=== PATIENT | male | born 2000 | race African-American/Black ===

== ENCOUNTER 2019-11-04 08:00 | Outpatient (CLI) | payer MEDICAID ==
[2019-11-04 18:15] LABS: BASOPHILS % (AUTO) 0.5 %; EOSINOPHILS # (AUTO) 0.1 10^3/uL (0.0-0.7); EOSINOPHILS % (AUTO) 1.8 %; HGB - HEMOGLOBIN 14.3 g/dL (14.0-18.0); LYMPHOCYTES # (AUTO) 1.6 10^3/uL (1.5-3.5); LYMPHOCYTES % (AUTO) 25.7 %; MEAN CORPUSCULAR HEMOGLOBIN 29.7 pg (27.0-31.0); MEAN CORPUSCULAR HGB CONC 33.1 g/dL (32.0-36.0); MEAN CORPUSCULAR VOLUME 89.8 fL (80.0-94.0); MEAN PLATELET VOLUME 10.3 fL (7.4-11.4); MONOCYTES # (AUTO) 0.5 10^3/uL (0.0-1.0); MONOCYTES % (AUTO) 7.6 %; NEUTROPHILS % (AUTO) 64.2 %; PLT - PLATELET COUNT 350 10^3/uL (130-450); RED BLOOD COUNT 4.81 10^6/uL (4.70-6.10); RED CELL DISTRIBUTION WIDTH 12.3 % (12.0-15.0); WHITE BLOOD COUNT 6.2 x10^3/uL (4.8-10.8)
[2019-11-04 18:37] LABS: ALBUMIN 4.1 g/dL (3.2-5.5); ALBUMIN/GLOBULIN RATIO 1.4 (1.0-2.2); BILIRUBIN,TOTAL 0.4 mg/dL (0.2-1.0); CALCIUM 9.1 mg/dL (8.5-10.3); CREATININE 0.7 mg/dL (0.6-1.2); MAGNESIUM 2.2 mg/dL (1.7-2.8); TOTAL PROTEIN 7.1 g/dL (6.7-8.2)
== END 2019-11-04 23:59 | disposition home or self-care (01) ==
LOC: LAB.WCP 08:00
PROVIDERS: ATTEND Family Medicine
DX: K56.2 Volvulus (principal)
CPT/HCPCS: 36415; 80053; 83735; 85025

== ENCOUNTER 2021-04-05 11:24 | Outpatient (CLI) | payer OTHER, MEDICAID ==
[2021-04-05 18:02] LABS: BASOPHILS % (AUTO) 0.4 %; EOSINOPHILS # (AUTO) 0.1 10^3/uL (0.0-0.7); EOSINOPHILS % (AUTO) 1.5 %; HCT - HEMATOCRIT 47.6 % (42.0-52.0); HGB - HEMOGLOBIN 15.7 g/dL (14.0-18.0); LYMPHOCYTES # (AUTO) 1.9 10^3/uL (1.5-3.5); LYMPHOCYTES % (AUTO) 40.2 %; MEAN CORPUSCULAR HEMOGLOBIN 28.9 pg (27.0-31.0); MEAN CORPUSCULAR VOLUME 87.5 fL (80.0-94.0); MEAN PLATELET VOLUME 10.6 fL (7.4-11.4); MONOCYTES # (AUTO) 0.4 10^3/uL (0.0-1.0); MONOCYTES % (AUTO) 8.5 %; NEUTROPHILS # (AUTO) 2.4 10^3/uL (1.5-6.6); NEUTROPHILS % (AUTO) 49.2 %; PLT - PLATELET COUNT 250 10^3/uL (130-450); RED BLOOD COUNT 5.44 10^6/uL (4.70-6.10); WHITE BLOOD COUNT 4.8 x10^3/uL (4.8-10.8)
[2021-04-05 18:07] LABS: INR 1.1 (0.8-1.2)
[2021-04-05 18:14] LABS: PARTIAL THROMBOPLASTIN TIME 36.5 secs (24.9-33.3)
[2021-04-05 18:17] LABS: ALBUMIN 4.5 g/dL (3.2-5.5); ALBUMIN/GLOBULIN RATIO 1.4 (1.0-2.2); BILIRUBIN,TOTAL 0.6 mg/dL (0.2-1.0); CALCIUM 9.7 mg/dL (8.5-10.3); CREATININE 0.8 mg/dL (0.6-1.2); POTASSIUM 3.9 mmol/L (3.5-5.0); TOTAL PROTEIN 7.7 g/dL (6.7-8.2)
== END 2021-04-05 23:59 | disposition home or self-care (01) ==
LOC: LAB.WCP 11:24
PROVIDERS: ATTEND Family Medicine
DX: R63.6 Underweight (principal)
CPT/HCPCS: 36415; 80053; 84153; 85025; 85610; 85730

== ENCOUNTER 2025-05-12 12:42 | Inpatient (IN) ==
--- NOTE | 2025-05-12 12:59 | ED Physician Documentation ---
PD HPI NVD Stated complaint Stated Complaint: ABD PX/N Chief complaint Chief Complaint: Abd Pain Additonal information Additional information: 25-year-old male was recently here couple days ago for nausea vomiting abdominal pain. He is history of intussusception that self resolved without surgery he was given a prescription of Zofran and told to try to do some bowel rest going home he said that he has not smoked any cannabis in about a month comes back in today for no improvement of symptoms no worsening symptoms. Continues to have nausea vomiting no fevers or chills mild generalized abdominal discomfort Meds/Allgy Home Medications Ambulatory Orders Medication Instructions Recorded Confirmed ondansetron 4 mg disintegrating 4 mg PO Q8H PRN nausea and 05/10/25 05/12/25 tablet vomiting #15 tabs Allergies Allergies Allergy/AdvReac Type Severity Reaction Status Date / Time No Known Drug Allergies Allergy Verified 05/12/25 12:58 PFSH Active Problems All Active Problems (Updated 05/12/25 @ 14:24 by Kvng Chung DNP) Intractable cyclical vomiting with nausea (Acute) Hypokalemia (Acute) Nausea & vomiting (Acute) Volvulus of large intestine (Acute) Underweight (Acute) GERD with esophagitis (Acute) Esophageal candidiasis (Acute) Tinea capitis (Acute) Medical History Medical History (Updated 05/12/25 @ 14:24 by Kvng Chung DNP) History of intussusception of intestine Social History Social History (Updated 05/10/25 @ 13:09 by Lena Barrios, RN, BSN) Smoking Status: Unknown if ever smoked Living arrangement: At home Do you feel safe in your home environment?: Yes History of physical, verbal, emotional, or financial abuse?: No POLST Patient has POLST: No Exam Exam Vital Signs: Vital Signs x48h Temp Pulse Resp BP Pulse Ox 05/12/25 16:00 114 H 20 98 05/12/25 14:34 92 18 131/71 H 98 05/12/25 12:48 37 C 107 H 22 151/115 H 97 Constitutional normal general appearance, no apparent distress, average body habitus, no limitations and alert HENMT normocephalic and head/scalp atraumatic Eyes PERRL Chest inspection of chest normal Respiratory breath sounds equal bilaterally and normal respiratory effort Cardiovascular normal heart rate noted Gastrointestinal abdomen normal to inspection, abdomen soft to palpation, nontender to palpation, nondistended and no masses Genitourinary no CVA tenderness Extremities normal to inspection Results Vitals Vitals: Vital Signs - 24 hr 05/12/25 12:48 05/12/25 14:34 05/12/25 16:00 Temperature 37 C Temperature Source Temporal Artery Scan Pulse Rate 107 H 92 114 H Respiratory Rate 22 18 20 Blood Pressure 151/115 H 131/71 H O2 Saturation 97 98 98 O2 Source Room air Room air Room air Pain Intensity 8 4 0 Oxygen O2 Source Room air EKG (time done) 1351: EKG releavant findings:: EKG personally interpreted by author of this note. Relevant findings are: Rate: Rate (enter#) (87) Rhythm: NSR and LAE Hanson: Normal Intervals: Normal MA Ischemia: Normal ST segments Computer interpretation: Agree with computer Labs Labs: Laboratory Tests 05/12/25 05/12/25 05/12/25 12:55 13:10 14:25 WBC 8.9 RBC 5.75 Hgb 17.3 Hct 48.6 MCV 84.5 MCH 30.1 MCHC 35.6 RDW 11.9 L Plt Count 294 MPV 9.9 Neut # (Auto) 6.1 Lymph # (Auto) 1.8 Marion # (Auto) 1.0 Eos # (Auto) 0.0 Baso # (Auto) 0.0 Absolute Nucleated RBC 0.00 Nucleated RBC % 0.0 Sodium 133 L Potassium 2.6 L Chloride 84 L Carbon Dioxide 33 H Anion Gap 16.0 H BUN 17 Creatinine 1.0 Estimated GFR (MDRD) 109 Glucose 140 H Calcium 10.3 Magnesium 2.4 H Total Bilirubin 2.0 H AST 26 ALT 25 Alkaline Phosphatase 63 Total Protein 8.3 Albumin 5.2 Globulin 3.1 Albumin/Globulin Ratio 1.7 Lipase < 10 L Urine Color YELLOW Urine Clarity HAZY Urine pH 7.5 Ur Specific [place]om 1.010 Urine Protein 30 H Urine Glucose (UA) NEGATIVE Urine Ketones >=80 H Urine Occult Blood NEGATIVE Urine Nitrite NEGATIVE Urine Bilirubin NEGATIVE Urine Urobilinogen 0.2 (NORMAL) Ur Leukocyte Esterase NEGATIVE Urine RBC 0-5 Urine WBC 0-3 Ur Squamous Epith Cells RARE Squamous Urine Bacteria Few Urine Mucus Few Strands Ur Microscopic Review INDICATED Urine Culture Comments NOT INDICATED Nasal Adenovirus (PCR) NOT DETECTED Nasal B. parapertussis DNA (PCR) NOT DETECTED Nasal Coronavir 229E PCR NOT DETECTED Nasal Coronavir HKU1 PCR NOT DETECTED Nasal Coronavir NL63 PCR NOT DETECTED Nasal Coronavir OC43 PCR NOT DETECTED Nasal Enterovir/Rhinovir PCR NOT DETECTED Nasal Influenza B PCR NOT DETECTED Nasal Influenza A PCR NOT DETECTED Nasal Parainfluen 1 PCR NOT DETECTED Nasal Parainfluen 2 PCR NOT DETECTED Nasal Parainfluen 3 PCR NOT DETECTED Nasal Parainfluen 4 PCR NOT DETECTED Nasal RSV (PCR) NOT DETECTED Nasal B.pertussis DNA PCR NOT DETECTED Nasal C.pneumoniae (PCR) NOT DETECTED Jaquan Human Metapneumo PCR NOT DETECTED Nasal M.pneumoniae (PCR) NOT DETECTED Nasal SARS-CoV-2 (PCR) NOT DETECTED Urine Opiates Screen NEGATIVE Ur Buprenorphine Scrn NEGATIVE Ur Oxycodone Screen NEGATIVE Urine Methadone Screen NEGATIVE Urine Fentanyl Screen Negative Ur Barbiturates Screen NEGATIVE Ur Tricyclics Screen NEGATIVE Ur Phencyclidine Scrn NEGATIVE Ur Amphetamine Screen NEGATIVE U Methamphetamines Scrn NEGATIVE U Benzodiazepines Scrn NEGATIVE Urine Cocaine Screen NEGATIVE U Cannabinoids Screen POSITIVE H Ur Drug Screen Comment CUTOFF CONC BELOW: Ethyl Alcohol < 10.0 Rads (name of study) CT abdomen pelvis with contrast: Relevant Findings:: Final report received and EMP independent interpretation of test Interpretation: IMPRESSION: No acute abnormality. Normal appendix. PD Medical Decision Making ED course ED course: The patient returns to the emergency department for his second visit this week with persistent nausea, vomiting, and abdominal pain. Symptoms have neither worsened nor improved since his prior evaluation. Repeat laboratory testing today shows no leukocytosis, with WBC decreased from 12.5 to 8.9, and sodium level at 126. The patient was unable to tolerate oral sodium replacement prescr ibed during his last visit due to ongoing vomiting. CT abdomen and pelvis with contrast demonstrates no acute abnormalities. He received 1 liter of IV fluids and IV droperidol in the emergency department but continues to experience nausea and emesis. Urine drug screen is positive for cannabis, though the patient denies recent use, stating he has not used in over a month. Given persistent symptoms, electrolyte abnormalities, and failure of outpatient management, the on-call hospitalist was consulted and has graciously agreed to admit the patient for further evaluation, IV fluid management, and symptomatic control. Patient and family updated on the plan and agreeable to admission. Discharge Plan Discharge Patient Disposition: ED Place in Observation Clinical Impression: Hypokalemia, Intractable cyclical vomiting with nausea Interventions: ED Admission Assessment Last Done: 05/12/25 17:04 Vitals documented within 30 minutes of discharge?: Yes
[2025-05-12] MEDS: ONDANSETRON ODT 4 MG TABLET TL STA (13:02)
[2025-05-12] MEDS: LACTATED RINGERS 1,000 ML IV STA (13:07)
--- OUTSIDE RECORDS SUMMARY | 2025-05-12 13:09 | EXTERNAL MEDICAL SUMMARY RPT | Continuity of Care Document ---
Author Organization [facility] Address [address] [place] [id number] Phone Problems date description facility 2025-05-10 18:22 Nausea with vomiting, unspecifi ed [facility] 2025-05-12 09:00 Unspecified abdominal pain [facility] 2025-05-12 09:00 Nausea with vomiting, unspecifi ed [facility] Results/Labs test date facility value unit notes Result panel 1 LIPASE 2025-05-10 13:10 [facility] < 10 u/l As of January 2023 testing method has changed, this may include reference ranges. NUCLEATED RED BLOOD CELLS AUTO 2025-05-10 13:10 [facility] 0.0 /100wbc (missing) BASOPHILS # (AUTO) 2025-05-10 13:10 [facility] 0.0 10 3/ul (missing) EOSINOPHILS # (AUTO) 2025-05-10 13:10 [facility] 0.0 10 3/ul (missing) NRBC ABSOLUTE COUNT (AUTO) 2025-05-10 13:10 [facility] 0.00 x10 3/ul (missing) MONOCYTES # (AUTO) 2025-05-10 13:10 [facility] 1.1 10 3/ul (missing) BILIRUBIN,TOTAL 2025-05-10 13:10 [facility] 1.1 mg /dl As of January 2023 testing method has changed, this may include reference ranges. CREATININE 2025-05-10 13:10 [facility] 1.1 mg/dl As of January 2023 testing method has changed, this may include reference ranges. LYMPHOCYTES # (AUTO) 2025-05-10 13:10 [facility] 1.3 10 3/ul (missing) ALBUMIN/GLOBULIN RATIO 2025-05-10 13:10 [facility] 1.7 (missing) (missing) MAGNESIUM 2025-05-10 13:10 [facility] 1.8 mg/dl As of January 2023 testing method has changed, this may include reference ranges. NEUTROPHILS # (AUTO) 2025-05-10 13:10 [facility] 10.0 10 3/ul (missing) MEAN PLATELET VOLUME 2025-05-10 13:10 [facility] 10.3 fl (missing) CALCIUM 2025-05-10 13:10 [facility] 10.6 mg/dl As of January 2023 testing method has changed, this may include reference ranges. RED CELL DISTRIBUTION WIDTH 2025-05-10 13:10 [facility] 12.1 % (missing) WHITE BLOOD COUNT 2025-05-10 13:10 [facility] 12.5 x10 3/ul (missing) GLUCOSE 2025-05-10 13:10 [facility] 129 mg/dl As of January 2023 testing method has changed, this may include reference ranges. SODIUM 2025-05-10 13:10 [facility] 134 mmol/l (missing) HGB - HEMOGLOBIN 2025-05-10 13:10 [facility] 16.5 g /dl (missing) ANION GAP 2025-05-10 13:10 [facility] 21.0 (missing ) (missing) AST ASPARTATE AMINOTRANSFERASE 2025-05-10 13:10 [facility] 23 iu/l As of January 2023 testing method has changed, this may include reference ranges. ALT ALANINE AMINOTRANSFERASE 2025-05-10 13:10 [facility] 27 iu/l As of January 2023 testing method has changed, this may include reference ranges. BUN - BLOOD UREA NITROGEN 2025-05-10 13:10 [facility] 28 mg/dl As of Jan testing method has changed, this may include reference ranges. MEAN CORPUSCULAR HEMOGLOBIN 2025-05-10 13:10 [facility] 29.4 pg (missing) POTASSIUM 2025-05-10 13:10 [facility] 3.0 mmol/l As of January 2023 testing method has changed, this may include reference ranges. GLOBULIN 2025-05-10 13:10 [facility] 3.3 g/dl (missing) CARBON DIOXIDE - CO2 2025-05-10 13:10 [facility] 30 mmol/l As of January 2023 testing method has changed, this may include reference ranges. PLT - PLATELET COUNT 2025-05-10 13:10 [facility] 329 10 3/ul (missing) MEAN CORPUSCULAR HGB CONC 2025-05-10 13:10 [facility] 34.0 g/dl (missing) HCT - HEMATOCRIT 2025-05-10 13:10 [facility] 48.5 % (missing) RED BLOOD COUNT 2025-05-10 13:10 [facility] 5.62 10 6/ul (missing) ALBUMIN 2025-05-10 13:10 [facility] 5.7 g/dl As of January 2023 testing method has changed, this may include reference ranges. ALKALINE PHOSPHATASE 2025-05-10 13:10 [facility] 75 iu/l As of January 2023 testing method has changed, this may include reference ranges. CHLORIDE 2025-05-10 13:10 [facility] 83 mmol/l As of January 2023 testing method has changed, this may include reference ranges. MEAN CORPUSCULAR VOLUME 2025-05-10 13:10 [facility] 86.3 fl (missing) TOTAL PROTEIN 2025-05-10 13:10 [facility] 9.0 g/dl As of January 2023 testing method has changed, this may include reference ranges. GFR - MDRD 2025-05-10 13:10 [facility] 97 (missin g) The IDMS-traceable MDRD Study Equation has been validated extensively in and populations between the ages of 18 and 70 with impaired kidney function (eGFR < 60 mL/min/1.73m2) and has shown good performance for patients with all common causes of kidney disease. Although this equation has not been validated for patients older than 70, an MDRD-derived eGFR may still be a useful tool for providers caring for patients older than 70. References: http://www.nkdep. nih.gov/lab-evalu ation/gfr/creatin ine-stand ardization, last updated September 2011. Result panel 2 UROBILINOGEN,URINE 2025-05-10 15:20 [facility] 0.2 (NORMAL) e.u./dl (missing) SPECIFIC GRAVITY,URINE 2025-05-10 15:20 [facility] 1.005 (missing) (missing) KETONES,URINE (UA) 2025-05-10 15:20 [facility] 40 mg/dl (missing) PH,URINE 2025-05-10 15:20 [facility] 8.0 ph (missing) CLARITY,URINE 2025-05-10 15:20 [facility] CLEAR (missing) (missing) COLOR,URINE 2025-05-10 15:20 [facility] LIGHT YELLOW (missing) URINE CLEAN CATCH LEUKOCYTE ESTERASE, URINE 2025-05-10 15:20 [facility] NEGATIVE (missing) (missing) NITRITE,URINE 2025-05-10 15:20 [facility] NEGATIVE (missing) (missing) OCCULT BLOOD,URINE 2025-05-10 15:20 [facility] NEGATIVE (missing) (missing) BILIRUBIN,URINE 2025-05-10 15:20 [facility] NEGATIVE (missing) Bilirubin can be influenced by color interference. Please correlate positive results with clinical presentation GLUCOSE, URINE (UA) 2025-05-10 15:20 [facility] NEGATIVE mg/dl (missing) PROTEIN,URINE 2025-05-10 15:20 [facility] NEGATIVE mg/dl (missing) UR CULTURE IF IND 2025-05-10 15:20 [facility] NOT INDICATED (missing) (missing) URINE MICROSCOPIC INDICATED? 2025-05-10 15:20 [facility] NOT INDICATED (missing) (missing) Social History date description facility
[2025-05-12] MEDS: DROPERIDOL 5 MG/2 ML VIAL IVP STA (13:10)
[2025-05-12 13:14] LABS: HCT - HEMATOCRIT 48.6 % (42.0-52.0); HGB - HEMOGLOBIN 17.3 g/dL (14.0-18.0); MEAN PLATELET VOLUME 9.9 fL (7.4-11.4); NRBC ABSOLUTE COUNT (AUTO) 0.00 x10^3/uL; NUCLEATED RED BLOOD CELLS AUTO 0.0 /100WBC; PLT - PLATELET COUNT 294 10^3/uL (130-450); RED CELL DISTRIBUTION WIDTH 11.9 % (12.0-15.0)
[2025-05-12 13:30] LABS: ALT ALANINE AMINOTRANSFERASE 25 IU/L (10-60); AST ASPARTATE AMINOTRANSFERASE 26 IU/L (10-42); BUN - BLOOD UREA NITROGEN 17 mg/dL (6-20); CARBON DIOXIDE - CO2 33 mmol/L (21-32); CREATININE 1.0 mg/dL (0.6-1.3); GFR - MDRD 109 (>89)
[2025-05-12] MEDS: POTASSIUM CHLOR 10 MEQ/100 ML 10 MEQ/100 ML BAG IV SCH ×2 (14:24→20:51)
[2025-05-12 14:35] LABS: GLUCOSE, URINE (UA) NEGATIVE (NEGATIVE); KETONES,URINE (UA) >=80 mg/dL (NEGATIVE); OCCULT BLOOD,URINE NEGATIVE (NEGATIVE)
[2025-05-12 14:41] LABS: B. PARAPERTUSSIS- RESP PCR PAN NOT DETECTED; B. PERTUSSIS- RESP PCR PANEL NOT DETECTED; C. PNEUMONIAE- RESP PCR PANEL NOT DETECTED; CORONAVIRUS 229E-RESP PCR NOT DETECTED; CORONAVIRUS HKU1-RESP PCR NOT DETECTED; CORONAVIRUS NL63-RESP PCR NOT DETECTED; CORONAVIRUS OC43-RESP PCR NOT DETECTED; HUMAN METAPNEUMOVIRUS NOT DETECTED; INFLUENZA A- RESP PCR PANEL NOT DETECTED; INFLUENZA B - RESP PCR PANEL NOT DETECTED; M. PNEUMONIAE- RESP PCR PANEL NOT DETECTED; PARAINFLUENZA VIRUS 1 NOT DETECTED; PARAINFLUENZA VIRUS 2 NOT DETECTED; PARAINFLUENZA VIRUS 4 NOT DETECTED; RHINOVIRUS/ENTEROVIRUS NOT DETECTED; RSV- RESP PCR PANEL NOT DETECTED; SARS-CoV-2 -RESP PCR PANEL NOT DETECTED
[2025-05-12 14:46] LABS: SQUAMOUS EPITHELIAL CELL,UR RARE Squamous (<= Few)
[2025-05-12 14:48] LABS: AMPHETAMINE SCREEN,URINE NEGATIVE (NEGATIVE); BARBITURATE SCREEN,UR NEGATIVE (NEGATIVE); BENZODIAZEPINES SCREEN, URINE NEGATIVE (NEGATIVE); BUPRENORPHINE SCREEN, URINE NEGATIVE (NEGATIVE); COCAINE SCREEN URINE NEGATIVE (NEGATIVE); METHADONE SCREEN, URINE NEGATIVE (NEGATIVE); METHAMPHETAMINES SCREEN, URINE NEGATIVE (NEGATIVE); OPIATE SCREEN, URINE NEGATIVE (NEGATIVE); THC CANNABINOID SCREEN, URINE POSITIVE (NEGATIVE)
--- NOTE | 2025-05-12 16:18 | CT Report ---
PROCEDURE: CT Abdomen/Pelvis W INDICATIONS: generalized abd pain CONTRAST: omni 300, 100ml TECHNIQUE: After the administration of intravenous contrast, a CT scan of the abdomen and pelvis was performed. Images were recorded and evaluated at appropriate window settings. Reformats: coronal and sagittal. For radiation dose reduction, the following was used: automated exposure control, adjustment of mA and/or kV according to patient size. COMPARISON: CT 05/10/2025 FINDINGS: Image quality: Diagnostic. Lower chest: Unremarkable. Liver: Subcentimeter hypoattenuating liver lesions, too small to characterize by CT. Gallbladder: No radiopaque stones or wall thickening. Biliary tree: No intrahepatic or extrahepatic dilation, accounting for age. Spleen: No splenomegaly. Pancreas: No pancreatic ductal dilation. Adrenals: No adrenal nodule. Kidneys and ureters: No hydronephrosis. No renal cystic lesion which requires follow up. No solid mass. Stomach, bowel and peritoneum: No gastric or small bowel dilation. No abnormal wall thickening. No pathologic free fluid. Normal appendix. Lymph nodes: No central or retroperitoneal adenopathy. Vessels: No infrarenal aortic aneurysm. Patent portal vein. PELVIS Reproductive organs: Unremarkable. Bladder: No abnormal wall thickening. Pelvic lymph nodes: No pelvic adenopathy by size criteria. Bones: No aggressive osseous abnormality. Other: No significant ventral or inguinal hernia. IMPRESSION: No acute abnormality. Normal appendix. Reviewed by: Noman Goode MD on 05/12/2025 4:14 PM PST Approved by: Noman Goode MD on 05/12/2025 4:14 PM PST Station ID: [id number]
--- NOTE | 2025-05-12 16:30 | HISTORY & PHYSICAL EXAMINATION ---
Chief Complaint Chief Complaint Chief Complaint: Intractable nausea and vomiting History of Present Illness Admitted From Admitted From:: Home History Obtained From Records Reviewed: EMR History obtained from: Patient Exam Limitations: None History of Present Illness HPI Comment/Other: Patient is a 25-year-old male with a history of previous intussusception in 2019, former PEG tube, now removed, former admissions for cyclical vomiting syndrome, with concern for cannabinoid hyperemesis syndrome who presents for 4 to 5 days of worsening nausea and vomiting. He does not recall what triggered it. He thinks his last marijuana use was over a month ago, but with his drug screen being positive, he thinks it may have been sooner. He describes emesis is clear, but worries that there may have been some acid with the most recent 1. He denies any blood in his emesis. He continues to have nausea, although he states that Compazine did help. He has not been able to tolerate any food for the last few days. He is describes his abdominal pain as diffuse, cramping in nature. He associates it with retching and vomiting. [facility] discharge summary reviewed from 03/25/2025. He was admitted for a very similar presentation. GI was consulted and an EGD was performed 03/23 which showed severe ulcerative esophagitis, and he was discharged on Protonix and Carafate, which he states he completed his course of. He was advised close follow-up with his primary care provider. Past medical history includes intussusception, former PEG tube, GERD, marijuana use. Patient is currently taking no medications. He has no known drug allergies. Surgical history includes PEG tube insertion. He states he did not have a colectomy for the intussusception and it resolved on its own. This was in 2019. He denies any alcohol use, or tobacco use. He states he only smokes a very little bit of marijuana when he does, and thinks it has been weeks since his last time. He works as a contractor. He lives with his parents. Meds/Allgy Home Medications Ambulatory Orders Medication Instructions Recorded Confirmed ondansetron 4 mg disintegrating 4 mg PO Q8H PRN nausea and 05/10/25 05/12/25 tablet vomiting #15 tabs Allergies Allergies Allergy/AdvReac Type Severity Reaction Status Date / Time No Known Drug Allergies Allergy Verified 05/12/25 12:58 PFSH Active Problems All Active Problems (Updated 05/12/25 @ 18:32 by Vikas Gilliam MD) Intractable cyclical vomiting with nausea (Acute) Hypokalemia (Acute) Nausea & vomiting (Acute) Volvulus of large intestine (Acute) Underweight (Acute) GERD with esophagitis (Acute) Esophageal candidiasis (Acute) Tinea capitis (Acute) Medical History Medical History (Updated 05/12/25 @ 18:32 by Vikas Gilliam MD) History of intussusception of intestine Social History Social History (Updated 05/10/25 @ 13:09 by Lena Barrios, RN, BSN) Smoking Status: Unknown if ever smoked Living arrangement: At home Do you feel safe in your home environment?: Yes History of physical, verbal, emotional, or financial abuse?: No POLST Patient has POLST: No Review of Systems Constitutional Reports: Fatigue, Chills, Malaise, Weakness, Poor appetite and Weight loss; Denies: Fever Eyes Denies: Pain, Irritation, Blurry vision, Vision loss or Diplopia Ears, nose, mouth, and throat Denies: Ear pain, Hearing loss, Tinnitus, Nose bleeds or Nasal discharge Cardiovascular Denies: Irregular heart rate, chest pain, palpitations, edema, Syncope or shortness of breath with exertion Respiratory Denies: Shortness of breath, Cough or Sputum production Gastrointestinal Reports: Abdominal pain, Abdominal distention, Nausea, Vomiting and Poor appetite; Denies: Heartburn, Diarrhea or Constipation Genitourinary Denies: Painful urination, Urinary frequency or Urinary urgency Musculoskeletal Denies: Back pain, Extremity pain, Extremity swelling or Joint pain Integumentary/Breast Denies: Rash, Itching or Dryness Neurological Reports: General weakness; Denies: Headache, Weakness in extremities, Numbness in extremities, Abnormal gait or Dizziness Psychiatric Denies: Depression, Anxiety, Mood swings or Panic attacks Endocrine Reports: Fatigue; Denies: Excessive urination or Excessive thirst Hematologic/Lymphatic Denies: Anemia, Easy bruising or Easy bleeding Allergic/Immunologic Denies: Hives, Tongue swelling or Facial swelling Prior Level of Functionality: Independent of ADLs. Exam Exam Vital Signs: Vital Signs x48h Temp Pulse Resp BP Pulse Ox 05/12/25 17:04 80 16 98 05/12/25 16:00 114 H 20 98 05/12/25 14:34 92 18 131/71 H 98 11/06/25 12:48 98.6 F 107 H 22 151/115 H 97 Constitutional normal general appearance, distress noted (mild), abnormal body habitus (thin) and no limitations HENMT normocephalic, head/scalp atraumatic and hearing grossly normal bilaterally Eyes PERRL, EOMs intact bilaterally and conjunctivae normal Neck/C-Spine visual inspection normal, trachea midline and cervical spine nontender Chest inspection of chest normal Respiratory breath sounds equal bilaterally, normal respiratory effort, clear to auscultation bilaterally, no wheezes, no rales and no retractions Cardiovascular normal heart rate noted, regular rhythm noted, no gallop, no rub and no murmur Gastrointestinal Abdomen soft to palpation. No guarding or rigidity noted. Mild tenderness diffusely. Normal bowel sounds. Small surgical noted in the epigastric region, where patient states PEG tube was. Genitourinary no CVA tenderness and bladder normal to palpation Back/Pelvis spine normal to inspection, no thoracic spine tenderness and no lumbar spine tenderness Extremities normal to inspection, normal to palpation, no tenderness and full ROM Neurology no movement abnormality noted and no focal motor deficit noted Psychiatry mental status grossly normal, oriented x3, thought process normal, cooperative and affect normal Skin skin color normal, no rash, no lesions and no wounds Conclusion/Plan Problem List (1) Intractable cyclical vomiting with nausea: Plan: Patient presents with intractable cyclical vomiting with nausea, and abdominal pain. CT abdomen/pelvis negative for any acute process. Positive for cannabinoid use. Patient states that he believes he has not used cannabinoids in over a month. Likely this is cannabinoid hyperemesis syndrome. Received multiple doses of antiemetics without relief in ED. Unable to tolerate P.O. intake. Severely dehydrated. Capsaicin cream, IV fluid, pain control, nausea control with Compazine. Will start with full liquid diet, and advance slowly. Consideration can be made for acute intermittent porphyria. I have ordered urinary porphobilinogen (PBG) ([facility] ID [id number]) and aminolevulinic acid (ALA) ([facility] ID [id number]). These are send out tests, so may not return by time patient is discharged, but he can follow-up with them outpatient. (2) Hypokalemia: Plan: Continue IV replacement, trend as we replace. Likely due to GI losses as above. (3) GERD with esophagitis: Plan: EGD was performed 03/23 which showed severe ulcerative esophagitis, and he was discharged on Protonix and Carafate. Continue IV Protonix while here. Qualifiers: Esophagitis bleeding: without hemorrhage Qualified Code(s): K21.00 - Gastro-esophageal reflux disease with esophagitis, without bleeding (4) History of intussusception of intestine: Plan: Surgical history includes PEG tube insertion. He states he did not have a colectomy for the intussusception and it resolved on its own. This was in 2019. Lab Results Lab results reviewed: Yes 05/12/25 13:10 05/12/25 17:15 Diagnostic Imaging Results Diagnostic Imaging Results: positive Final report reviewed Core Measures Anticipated LOS I expect patient to be DC'd or transferred within 96 hours.: Yes DVT/VTE - Prophylaxis VTE/DVT Device ordered at admit?: No VTE/DVT Prophylaxis med ordered at admit?: Yes Stroke - Rehab Assessment Rehab services assessment to be ordered?: No Not Ordered - Medical Reason: Not indicated AMI - Statin at Admit Aspirin Prescribed on Admit: No Not Ordered - Medical Reason: Not indicated
[2025-05-12] MEDS ORDERED: ACETAMINOPHEN 325 MG TABLET PO PRN ×2 (17:04→18:04)
[2025-05-12] MEDS: PROCHLORPERAZINE 10 MG/2 ML VIAL IVP STA (17:06)
[2025-05-12] MEDS: SODIUM CHLORIDE FLUSH 0.9% 10 ML SYRINGE IVP SCH (17:11)
[2025-05-12] MEDS: KETOROLAC 15 MG/ML VIAL IVP STA ×2 (17:11→22:07)
[2025-05-12] MEDS: CAPSAICIN 0.025% CREAM 60 GM TUBE TOP SCH (17:14)
[2025-05-12] MEDS: LACTATED RINGERS 1,000 ML IV SCH (17:15)
[2025-05-12] MEDS: ONDANSETRON 4 MG/2 ML VIAL IVP PRN (20:51)
[2025-05-12] MEDS: PROCHLORPERAZINE 10 MG/2 ML VIAL IVP PRN (23:39)
[2025-05-13] MEDS: ACETAMINOPHEN 1,000 MG/100 ML 1,000 MG/100 ML BAG IV PRN (01:06)
[2025-05-13 05:21] LABS: HCT - HEMATOCRIT 42.9 % (42.0-52.0); HGB - HEMOGLOBIN 15.3 g/dL (14.0-18.0); MEAN PLATELET VOLUME 10.5 fL (7.4-11.4); PLT - PLATELET COUNT 229.0 10^3/uL (130-450); RED CELL DISTRIBUTION WIDTH 11.9 % (12.0-15.0)
[2025-05-13 05:43] LABS: BUN - BLOOD UREA NITROGEN 15.0 mg/dL (6-20); CARBON DIOXIDE - CO2 30.0 mmol/L (21-32); CREATININE 0.7 mg/dL (0.6-1.3); GFR - MDRD 164.0 (>89)
[2025-05-13] MEDS: POTASSIUM CHLOR 10 MEQ/100 ML 10 MEQ/100 ML BAG IV SCH ×2 (06:48→14:52)
[2025-05-13] MEDS: SODIUM CHLORIDE FLUSH 0.9% 10 ML SYRINGE IVP PRN (06:48)
[2025-05-13] MEDS: PANTOPRAZOLE 40 MG VIAL IVP SCH (06:48)
--- NOTE | 2025-05-13 08:22 | PROVIDER PROGRESS NOTE ---
Subjective Subjective Subjective: This morning, patient continues to have episodes of nausea and vomiting. He had 2 episodes of emesis this morning. He does not feel like eating at all. He basically had 0% of his lunch and his dinner. Denies any fevers or chills. Abdominal pain is improving, but worsens when he retches. Current Medications Current Medications Current Medications: Current Medications Generic Name Dose Route Start Last Admin Trade Name Freq PRN Reason Stop Dose Admin Acetaminophen 650 mg 05/12/25 17:04 Acetaminophen 325 Mg Tablet PO Q4HR PRN Pain 1 to 4, or Fever Al Hydroxide/Mg Hydroxide 30 ml 05/12/25 21:10 Mag Hydrox/Al Hydrox/Simeth 30 Ml Udc PO Q4HR PRN INDIGESTION Capsaicin 1 applic 05/12/25 17:04 05/12/25 20:51 Capsaicin 0.025% Cream 60 Gm Tube TOP 1 applic QID FIOR Administration Enoxaparin Sodium 40 mg 05/13/25 09:00 Enoxaparin 40 Mg/0.4 Ml Syringe SUBQ DAILY FIOR Lactated Ringer's 1,000 mls @ 75 mls/hr 05/12/25 17:04 05/13/25 04:56 Lr IV 75 mls/hr .[id number] FIOR Administration Acetaminophen 1,000 mg in 100 mls @ 400 mls/hr 05/13/25 00:01 05/13/25 01:30 Acetaminophen IV Infused Q6HR PRN Infusion PAIN 5-7 Potassium Chloride 10 meq in 100 mls @ 100 mls/hr 05/13/25 07:00 05/13/25 06:48 Potassium Chloride IV 05/13/25 10:59 75 mls/hr Q1H FIOR Administration Lidocaine HCl 5 ml 05/12/25 21:58 Lidocaine Viscous 2% 15 Ml Udc PO Q4H PRN Abdominal Pain Ondansetron HCl 4 mg 05/12/25 17:04 Ondansetron Odt 4 Mg Tablet TL Q6HR PRN Nausea / Vomiting Ondansetron HCl 4 mg 05/12/25 17:04 05/13/25 02:58 Ondansetron 4 Mg/2 Ml Vial IVP 4 mg Q6HR PRN Administration Nausea / Vomiting Pantoprazole Sodium 40 mg 05/13/25 07:00 05/13/25 06:48 Pantoprazole 40 Mg Vial IVP 40 mg QDAC FIOR Administration Prochlorperazine Edisylate 10 mg 05/12/25 17:04 05/12/25 23:39 Prochlorperazine 10 Mg/2 Ml Vial IVP 10 mg Q6HR PRN Administration Nausea / Vomiting Sodium Chloride 10 ml 05/12/25 17:04 05/13/25 06:48 Sodium Chloride Flush 0.9% 10 Ml Syringe IVP 10 ml PRN PRN Administration NEEDED PER PROVIDER ORDERS Sodium Chloride 10 ml 05/12/25 17:04 05/13/25 02:58 Sodium Chloride Flush 0.9% 10 Ml Syringe IVP 10 ml 0100,0900,1700 FIOR Administration Objective Vital Signs/Intake & Output Vital Signs: Vital Signs x48h Temp Pulse Resp BP Pulse Ox 05/13/25 08:11 97.9 F 102 H 18 139/91 H 97 05/13/25 04:00 98.1 F 77 18 161/100 H 97 Intake & Output: Intake & Output 05/10/25 05/11/25 05/12/25 05/13/25 23:59 23:59 23:59 23:59 Intake Total 1773 / 1773 1176 / 1176 Output Total 100 / 100 100 / 100 Balance 1673 / 1673 1076 / 1076 Weight (kg) 62 kg Objective Comments/Other: Constitutional normal general appearance, distress noted (mild), abnormal body habitus (thin) and no limitations HENMT normocephalic, head/scalp atraumatic and hearing grossly normal bilaterally Eyes PERRL, EOMs intact bilaterally and conjunctivae normal Neck/C-Spine visual inspection normal, trachea midline and cervical spine nontender Chest inspection of chest normal Respiratory breath sounds equal bilaterally, normal respiratory effort, clear to auscultation bilaterally, no wheezes, no rales and no retractions Cardiovascular normal heart rate noted, regular rhythm noted, no gallop, no rub and no murmur Gastrointestinal Abdomen soft to palpation. No guarding or rigidity noted. Mild tenderness diffusely. Normal bowel sounds. Small surgical noted in the epigastric region, where patient states PEG tube was. Genitourinary no CVA tenderness and bladder normal to palpation Back/Pelvis spine normal to inspection, no thoracic spine tenderness and no lumbar spine tenderness Extremities normal to inspection, normal to palpation, no tenderness and full ROM Neurology no movement abnormality noted and no focal motor deficit noted Psychiatry mental status grossly normal, oriented x3, thought process normal, cooperative and affect normal Skin skin color normal, no rash, no lesions and no wounds Lab Results 05/13/25 04:39 05/13/25 04:39 Other Labs: Lab Results x24hrs 05/13/25 05/12/25 05/12/25 Range/Units 04:39 23:08 17:15 WBC 6.9 (4.8-10.8) x10^3/uL RBC 4.99 (4.70-6.10) 10^6/uL Hgb 15.3 (14.0-18.0) g/dL Hct 42.9 (42.0-52.0) % MCV 86.0 (80.0-94.0) fL MCH 30.7 (27.0-31.0) pg MCHC 35.7 (32.0-36.0) g/dL RDW 11.9 L (12.0-15.0) % Plt Count 229 (130-450) 10^3/uL MPV 10.5 (7.4-11.4) fL Neut # (Auto) (1.5-6.6) 10^3/uL Lymph # (Auto) (1.5-3.5) 10^3/uL [place] # (Auto) (0.0-1.0) 10^3/uL Eos # (Auto) (0.0-0.7) 10^3/uL Baso # (Auto) (0.0-0.1) 10^3/uL Absolute Nucleated RBC x10^3/uL Nucleated RBC % /100WBC Sodium 134 L (135-145) mmol/L Potassium 2.8 L 3.0 L 2.9 L (3.5-4.5) mmol/L Chloride 94 L (101-111) mmol/L Carbon Dioxide 30 (21-32) mmol/L Anion Gap 10.0 (6-13) BUN 15 (6-20) mg/dL Creatinine 0.7 (0.6-1.3) mg/dL Estimated GFR (MDRD) 164 (>89) Glucose 93 (74-104) mg/dL Calcium 8.9 (8.5-10.3) mg/dL Magnesium 2.4 H (1.7-2.3) mg/dL Total Bilirubin (0.2-1.0) mg/dL AST (10-42) IU/L ALT (10-60) IU/L Alkaline Phosphatase (42-121) IU/L Total Protein (6.4-8.9) g/dL Albumin (3.2-5.5) g/dL Globulin (2.1-4.2) g/dL Albumin/Globulin Ratio (1.0-2.2) Lipase (11-82) U/L Urine Color Urine Clarity (CLEAR) Urine pH (5.0-7.5) PH Ur Specific [place] (1.002-1.030) Urine Protein (NEGATIVE) mg/dL Urine Glucose (UA) (NEGATIVE) mg/dL Urine Ketones (NEGATIVE) mg/dL Urine Occult Blood (NEGATIVE) Urine Nitrite (NEGATIVE) Urine Bilirubin (NEGATIVE) Urine Urobilinogen (NORMAL) E.U./dL Ur Leukocyte Esterase (NEGATIVE) Urine RBC (0-5) /HPF Urine WBC (0-3) /HPF Ur Squamous Epith Cells (<= Few) Urine Bacteria (None Seen) /HPF Urine Mucus Ur Microscopic Review Urine Culture Comments Nasal Adenovirus (PCR) Nasal B. parapertussis DNA (PCR) Nasal Coronavir 229E PCR Nasal Coronavir HKU1 PCR Nasal Coronavir NL63 PCR Nasal Coronavir OC43 PCR Nasal Enterovir/Rhinovir PCR Nasal Influenza B PCR Nasal Influenza A PCR Nasal Parainfluen 1 PCR Nasal Parainfluen 2 PCR Nasal Parainfluen 3 PCR Nasal Parainfluen 4 PCR Nasal RSV (PCR) Nasal B.pertussis DNA PCR Nasal C.pneumoniae (PCR) Jaquan Human Metapneumo PCR Nasal M.pneumoniae (PCR) Nasal SARS-CoV-2 (PCR) Urine Opiates Screen (NEGATIVE) Ur Buprenorphine Scrn (NEGATIVE) Ur Oxycodone Screen (NEGATIVE) Urine Methadone Screen (NEGATIVE) Urine Fentanyl Screen (NEGATIVE) Ur Barbiturates Screen (NEGATIVE) Ur Tricyclics Screen (NEGATIVE) Ur Phencyclidine Scrn (NEGATIVE) Ur Amphetamine Screen (NEGATIVE) U Methamphetamines Scrn (NEGATIVE) U Benzodiazepines Scrn (NEGATIVE) Urine Cocaine Screen (NEGATIVE) U Cannabinoids Screen (NEGATIVE) Ur Drug Screen Comment Ethyl Alcohol mg/dL 11/06/25 11/06/25 11/06/25 Range/Units 14:25 13:10 12:55 WBC 8.9 (4.8-10.8) x10^3/uL RBC 5.75 (4.70-6.10) 10^6/uL Hgb 17.3 (14.0-18.0) g/dL Hct 48.6 (42.0-52.0) % MCV 84.5 (80.0-94.0) fL MCH 30.1 (27.0-31.0) pg MCHC 35.6 (32.0-36.0) g/dL RDW 11.9 L (12.0-15.0) % Plt Count 294 (130-450) 10^3/uL MPV 9.9 (7.4-11.4) fL Neut # (Auto) 6.1 (1.5-6.6) 10^3/uL Lymph # (Auto) 1.8 (1.5-3.5) 10^3/uL [place] # (Auto) 1.0 (0.0-1.0) 10^3/uL Eos # (Auto) 0.0 (0.0-0.7) 10^3/uL Baso # (Auto) 0.0 (0.0-0.1) 10^3/uL Absolute Nucleated RBC 0.00 x10^3/uL Nucleated RBC % 0.0 /100WBC Sodium 133 L (135-145) mmol/L Potassium 2.6 L (3.5-4.5) mmol/L Chloride 84 L (101-111) mmol/L Carbon Dioxide 33 H (21-32) mmol/L Anion Gap 16.0 H (6-13) BUN 17 (6-20) mg/dL Creatinine 1.0 (0.6-1.3) mg/dL Estimated GFR (MDRD) 109 (>89) Glucose 140 H (74-104) mg/dL Calcium 10.3 (8.5-10.3) mg/dL Magnesium 2.4 H (1.7-2.3) mg/dL Total Bilirubin 2.0 H (0.2-1.0) mg/dL AST 26 (10-42) IU/L ALT 25 (10-60) IU/L Alkaline Phosphatase 63 (42-121) IU/L Total Protein 8.3 (6.4-8.9) g/dL Albumin 5.2 (3.2-5.5) g/dL Globulin 3.1 (2.1-4.2) g/dL Albumin/Globulin Ratio 1.7 (1.0-2.2) Lipase < 10 L (11-82) U/L Urine Color YELLOW Urine Clarity HAZY (CLEAR) Urine pH 7.5 (5.0-7.5) PH Ur Specific [place] 1.010 (1.002-1.030) Urine Protein 30 H (NEGATIVE) mg/dL Urine Glucose (UA) NEGATIVE (NEGATIVE) mg/dL Urine Ketones >=80 H (NEGATIVE) mg/dL Urine Occult Blood NEGATIVE (NEGATIVE) Urine Nitrite NEGATIVE (NEGATIVE) Urine Bilirubin NEGATIVE (NEGATIVE) Urine Urobilinogen 0.2 (NORMAL) (NORMAL) E.U./dL Ur Leukocyte Esterase NEGATIVE (NEGATIVE) Urine RBC 0-5 (0-5) /HPF Urine WBC 0-3 (0-3) /HPF Ur Squamous Epith Cells RARE Squamous (<= Few) Urine Bacteria Few (None Seen) /HPF Urine Mucus Few Strands Ur Microscopic Review INDICATED Urine Culture Comments NOT INDICATED Nasal Adenovirus (PCR) NOT DETECTED Nasal B. parapertussis DNA (PCR) NOT DETECTED Nasal Coronavir 229E PCR NOT DETECTED Nasal Coronavir HKU1 PCR NOT DETECTED Nasal Coronavir NL63 PCR NOT DETECTED Nasal Coronavir OC43 PCR NOT DETECTED Nasal Enterovir/Rhinovir PCR NOT DETECTED Nasal Influenza B PCR NOT DETECTED Nasal Influenza A PCR NOT DETECTED Nasal Parainfluen 1 PCR NOT DETECTED Nasal Parainfluen 2 PCR NOT DETECTED Nasal Parainfluen 3 PCR NOT DETECTED Nasal Parainfluen 4 PCR NOT DETECTED Nasal RSV (PCR) NOT DETECTED Nasal B.pertussis DNA PCR NOT DETECTED Nasal C.pneumoniae (PCR) NOT DETECTED Jaquan Human Metapneumo PCR NOT DETECTED Nasal M.pneumoniae (PCR) NOT DETECTED Nasal SARS-CoV-2 (PCR) NOT DETECTED Urine Opiates Screen NEGATIVE (NEGATIVE) Ur Buprenorphine Scrn NEGATIVE (NEGATIVE) Ur Oxycodone Screen NEGATIVE (NEGATIVE) Urine Methadone Screen NEGATIVE (NEGATIVE) Urine Fentanyl Screen Negative (NEGATIVE) Ur Barbiturates Screen NEGATIVE (NEGATIVE) Ur Tricyclics Screen NEGATIVE (NEGATIVE) Ur Phencyclidine Scrn NEGATIVE (NEGATIVE) Ur Amphetamine Screen NEGATIVE (NEGATIVE) U Methamphetamines Scrn NEGATIVE (NEGATIVE) U Benzodiazepines Scrn NEGATIVE (NEGATIVE) Urine Cocaine Screen NEGATIVE (NEGATIVE) U Cannabinoids Screen POSITIVE H (NEGATIVE) Ur Drug Screen Comment CUTOFF CONC BELOW: Ethyl Alcohol < 10.0 mg/dL Assessment/Plan Problem List (1) Intractable cyclical vomiting with nausea: Impression: Patient continues with intractable cyclical vomiting with nausea, and abdominal pain. CT abdomen/pelvis negative for any acute process. Positive for cannabinoid use. Patient states that he believes he has not used cannabinoids in over a month. Likely this is cannabinoid hyperemesis syndrome. Received multiple doses of antiemetics without relief in ED. Continnues to not be able to tolerate P.O. intake. Severely dehydrated. Capsaicin cream, IV fluid, pain control, nausea control with Compazine. Will start with full liquid diet, and advance slowly. Consideration can be made for acute intermittent porphyria. I have ordered urinary porphobilinogen (PBG) ([facility] ID [id number]) and aminolevulinic acid (ALA) ([facility] ID [id number]). These are send out tests, so may not return by time patient is discharged, but he can follow-up with them outpatient. (2) Hypokalemia: Impression: Continue IV replacement, trend as we replace. Likely due to GI losses as above. (3) GERD with esophagitis: Impression: EGD was performed 03/23 which showed severe ulcerative esophagitis, and he was discharged on Protonix and Carafate. Continue IV Protonix while here. Qualifiers: Esophagitis bleeding: without hemorrhage Qualified Code(s): K21.00 - Gastro-esophageal reflux disease with esophagitis, without bleeding (4) History of intussusception of intestine: Impression: Surgical history includes PEG tube insertion. He states he did not have a colectomy for the intussusception and it resolved on its own. This was in 2019.
[2025-05-13] MEDS: ENOXAPARIN 40 MG/0.4 ML SYRINGE SUBQ SCH (08:23)
[2025-05-13] MEDS: KETOROLAC 15 MG/ML VIAL IVP PRN (11:44)
--- NOTE | 2025-05-13 14:34 | PHARMACY PROGRESS NOTE ---
Best Possible Medication History Admit Date and Time: 05/12/25 1628 Home Medications Medication Instructions Recorded Confirmed Type ondansetron 4 mg disintegrating 4 mg PO Q8H PRN nausea and 05/10/25 05/12/25 Rx tablet vomiting #15 tabs Processed by: Nursing Medications reviewed in ED?: Yes Medication History completed: Yes Patient Interview: Completed Secondary Source(s): Pharmacy records and Insurance records [facility] Statement: As the person ultimately responsible for medication therapy, providers are able to order a medication from an existing home medication list in [facility] via the "Reconcile Routine" prior to Confirmation of that medication by technical support 1 software engineer. Such practice is discouraged except when the physician, in their clinical j udgment, deems that a medical need exists for a medication without regard to previous use.
[2025-05-13] MEDS: LIDOCAINE VISCOUS 2% 15 ML UDC PO PRN (20:30)
[2025-05-13] MEDS: MAG HYDROX/AL HYDROX/SIMETH 30 ML UDC PO PRN (20:33)
[2025-05-14 07:54] LABS: HCT - HEMATOCRIT 42.5 % (42.0-52.0); HGB - HEMOGLOBIN 14.6 g/dL (14.0-18.0); MEAN PLATELET VOLUME 9.9 fL (7.4-11.4); PLT - PLATELET COUNT 188.0 10^3/uL (130-450); RED CELL DISTRIBUTION WIDTH 11.8 % (12.0-15.0)
[2025-05-14 08:07] LABS: BUN - BLOOD UREA NITROGEN 14.0 mg/dL (6-20); CARBON DIOXIDE - CO2 28.0 mmol/L (21-32); CREATININE 0.8 mg/dL (0.6-1.3); GFR - MDRD 141.0 (>89)
--- NOTE | 2025-05-14 09:13 | PROVIDER PROGRESS NOTE ---
Subjective Subjective Subjective: This morning, patient continues to have episodes of nausea and vomiting. He has variable levels of success with antiemetics ordered. He does have some abdominal pain, which worsens when he is throwing up. He denies any fevers and chills, and is passing gas. Current Medications Current Medications Current Medications: Current Medications Generic Name Dose Route Start Last Admin Trade Name Freq PRN Reason Stop Dose Admin Acetaminophen 650 mg 05/12/25 17:04 Acetaminophen 325 Mg Tablet PO Q4HR PRN Pain 1 to 4, or Fever Al Hydroxide/Mg Hydroxide 30 ml 05/12/25 21:10 05/13/25 20:33 Mag Hydrox/Al Hydrox/Simeth 30 Ml Udc PO 30 ml Q4HR PRN Administration INDIGESTION Capsaicin 1 applic 05/12/25 17:04 05/13/25 21:01 Capsaicin 0.025% Cream 60 Gm Tube TOP Not Given QID FIOR Enoxaparin Sodium 40 mg 05/13/25 09:00 05/13/25 08:23 Enoxaparin 40 Mg/0.4 Ml Syringe SUBQ 40 mg DAILY FIOR Administration Lactated Ringer's 1,000 mls @ 75 mls/hr 05/12/25 17:04 05/14/25 07:48 Lr IV 75 mls/hr .[id number] FIOR Administration Acetaminophen 1,000 mg in 100 mls @ 400 mls/hr 05/13/25 00:01 05/14/25 07:47 Acetaminophen IV 400 mls/hr Q6HR PRN Administration PAIN 5-7 Ketorolac Tromethamine 15 mg 05/13/25 08:22 05/14/25 04:32 Ketorolac 15 Mg/Ml Vial IVP 05/18/25 08:21 15 mg Q6HR PRN Administration Severe Pain (Level 7-10) Lidocaine HCl 5 ml 05/12/25 21:58 05/13/25 20:30 Lidocaine Viscous 2% 15 Ml Udc PO 5 ml Q4H PRN Administration Abdominal Pain Ondansetron HCl 4 mg 05/12/25 17:04 Ondansetron Odt 4 Mg Tablet TL Q6HR PRN Nausea / Vomiting Ondansetron HCl 4 mg 05/12/25 17:04 05/14/25 04:32 Ondansetron 4 Mg/2 Ml Vial IVP 4 mg Q6HR PRN Administration Nausea / Vomiting Pantoprazole Sodium 40 mg 05/13/25 07:00 05/14/25 06:40 Pantoprazole 40 Mg Vial IVP 40 mg QDAC FIOR Administration Prochlorperazine Edisylate 10 mg 05/12/25 17:04 05/14/25 07:33 Prochlorperazine 10 Mg/2 Ml Vial IVP 10 mg Q6HR PRN Administration Nausea / Vomiting Promethazine HCl 25 mg 05/13/25 20:45 Promethazine 25 Mg Tablet PO Q6HR PRN Nausea / Vomiting Sodium Chloride 10 ml 05/12/25 17:04 05/13/25 06:48 Sodium Chloride Flush 0.9% 10 Ml Syringe IVP 10 ml PRN PRN Administration NEEDED PER PROVIDER ORDERS Sodium Chloride 10 ml 05/12/25 17:04 05/13/25 19:29 Sodium Chloride Flush 0.9% 10 Ml Syringe IVP 10 ml 0100,0900,1700 FIOR Administration Objective Vital Signs/Intake & Output Vital Signs: Vital Signs x48h Temp Pulse Resp BP Pulse Ox 05/14/25 03:56 97.7 F 86 16 138/94 H 98 Intake & Output: Intake & Output 05/11/25 05/12/25 05/13/25 05/14/25 23:59 23:59 23:59 23:59 Intake Total 1773 / 1773 3537 / 3537 1357 / 1357 Output Total 100 / 100 1300 / 1300 1020 / 1020 Balance 1673 / 1673 2237 / 2237 337 / 337 Weight (kg) 62 kg Objective Comments/Other: Constitutional normal general appearance, distress noted (mild), abnormal body habitus (thin) and no limitations HENMT normocephalic, head/scalp atraumatic and hearing grossly normal bilaterally Eyes PERRL, EOMs intact bilaterally and conjunctivae normal Neck/C-Spine visual inspection normal, trachea midline and cervical spine nontender Chest inspection of chest normal Respiratory breath sounds equal bilaterally, normal respiratory effort, clear to auscultation bilaterally, no wheezes, no rales and no retractions Cardiovascular normal heart rate noted, regular rhythm noted, no gallop, no rub and no murmur Gastrointestinal Abdomen soft to palpation. No guarding or rigidity noted. Mild tenderness diffusely. Normal bowel sounds. Small surgical noted in the epigastric region, where patient states PEG tube was. Genitourinary no CVA tenderness and bladder normal to palpation Back/Pelvis spine normal to inspection, no thoracic spine tenderness and no lumbar spine tenderness Extremities normal to inspection, normal to palpation, no tenderness and full ROM Neurology no movement abnormality noted and no focal motor deficit noted Psychiatry mental status grossly normal, oriented x3, thought process normal, cooperative and affect normal Skin skin color normal, no rash, no lesions and no wounds Lab Results 05/14/25 07:49 05/14/25 07:49 Other Labs: Lab Results x24hrs 05/14/25 05/13/25 Range/Units 07:49 13:19 WBC 5.8 (4.8-10.8) x10^3/uL RBC 4.92 (4.70-6.10) 10^6/uL Hgb 14.6 (14.0-18.0) g/dL Hct 42.5 (42.0-52.0) % MCV 86.4 (80.0-94.0) fL MCH 29.7 (27.0-31.0) pg MCHC 34.4 (32.0-36.0) g/dL RDW 11.8 L (12.0-15.0) % Plt Count 188 (130-450) 10^3/uL MPV 9.9 (7.4-11.4) fL Sodium 136 (135-145) mmol/L Potassium 3.1 L 3.3 L (3.5-4.5) mmol/L Chloride 97 L (101-111) mmol/L Carbon Dioxide 28 (21-32) mmol/L Anion Gap 11.0 (6-13) BUN 14 (6-20) mg/dL Creatinine 0.8 (0.6-1.3) mg/dL Estimated GFR (MDRD) 141 (>89) Glucose 104 (74-104) mg/dL Calcium 8.8 (8.5-10.3) mg/dL Assessment/Plan Problem List (1) Intractable cyclical vomiting with nausea: Impression: Patient continues with intractable cyclical vomiting with nausea, and abdominal pain. CT abdomen/pelvis negative for any acute process. Concern for continued acute dehydration requiring IVF, and inability to tolerate any p.o. intake. Positive for cannabinoid use. Patient states that he believes he has not used cannabinoids in over a month. Likely this is cannabinoid hyperemesis syndrome. Received multiple doses of antiemetics without relief in ED. Capsaicin cream, IV fluid, pain control, nausea control with Zofran, Compazine, promethazine as needed (whichever works better). Will start with clear liquid diet, and advance slowly. Currently unable to take any thing. Consideration can be made for acute intermittent porphyria. I have ordered urinary porphobilinogen (PBG) ([facility] ID [id number]) and aminolevulinic acid (ALA) ([facility] ID [id number]). These are send out tests, so may not return by time patient is discharged, but he can follow-up with them outpatient. (2) Hypokalemia: Impression: Continue IV replacement, trend as we replace. Likely due to GI losses as above. (3) GERD with esophagitis: Impression: EGD was performed 03/23 which showed severe ulcerative esophagitis, and he was discharged on Protonix and Carafate. Continue IV Protonix while here. Qualifiers: Esophagitis bleeding: without hemorrhage Qualified Code(s): K21.00 - Gastro-esophageal reflux disease with esophagitis, without bleeding (4) History of intussusception of intestine: Impression: Surgical history includes PEG tube insertion. He states he did not have a colectomy for the intussusception and it resolved on its own. This was in 2019.
[2025-05-14] MEDS: POTASSIUM CHLOR 10 MEQ/100 ML 10 MEQ/100 ML BAG IV SCH (12:29)
[2025-05-14] MEDS: DEXTROSE 5%-LACTATED RINGERS 1,000 ML IV SCH (12:29)
[2025-05-14] MEDS: POTASSIUM CHLORIDE 20 MEQ TABLET PO ONE (13:18)
[2025-05-15] MEDS: PROMETHAZINE 25 MG TABLET PO PRN (05:11)
[2025-05-15 05:26] LABS: HCT - HEMATOCRIT 40.4 % (42.0-52.0); HGB - HEMOGLOBIN 14.1 g/dL (14.0-18.0); MEAN PLATELET VOLUME 10.2 fL (7.4-11.4); PLT - PLATELET COUNT 206.0 10^3/uL (130-450); RED CELL DISTRIBUTION WIDTH 11.8 % (12.0-15.0)
[2025-05-15 07:14] LABS: BUN - BLOOD UREA NITROGEN 9.0 mg/dL (6-20); CARBON DIOXIDE - CO2 28.0 mmol/L (21-32); CREATININE 0.8 mg/dL (0.6-1.3); GFR - MDRD 141.0 (>89)
[2025-05-15] MEDS: POTASSIUM CHLOR 10 MEQ/100 ML 10 MEQ/100 ML BAG IV SCH (09:01)
--- NOTE | 2025-05-15 11:14 | PROVIDER PROGRESS NOTE ---
Subjective Subjective Subjective: Yesterday, patient felt like eating, and his appetite felt like it was returning. He requested a soft diet, and he was going to take it slow. He ate dinner, and initially was tolerating it well. However about a few hours later, he threw up. Overnight, he threw up again 2-3 times. He states that it is usually around this point in previous episodes, day 4-5 where he starts feeling better. At times, he does feel better, and then it worsens again. We talked about how he has been without adequate nutrition for a few days, and how we may need to supplement it. He understands, as he has done this before. Currently, he is having some mild cramping abdominal pain, but it is improved. He denies any fevers or chills. Current Medications Current Medications Current Medications: Current Medications Generic Name Dose Route Start Last Admin Trade Name Freq PRN Reason Stop Dose Admin Acetaminophen 650 mg 05/12/25 17:04 Acetaminophen 325 Mg Tablet PO Q4HR PRN Pain 1 to 4, or Fever Al Hydroxide/Mg Hydroxide 30 ml 05/12/25 21:10 05/13/25 20:33 Mag Hydrox/Al Hydrox/Simeth 30 Ml Udc PO 30 ml Q4HR PRN Administration INDIGESTION Capsaicin 1 applic 05/12/25 17:04 05/15/25 09:02 Capsaicin 0.025% Cream 60 Gm Tube TOP Not Given QID FIOR Enoxaparin Sodium 40 mg 05/13/25 09:00 05/15/25 09:02 Enoxaparin 40 Mg/0.4 Ml Syringe SUBQ 40 mg DAILY FIOR Administration Acetaminophen 1,000 mg in 100 mls @ 400 mls/hr 05/13/25 00:01 05/15/25 00:07 Acetaminophen IV Infused Q6HR PRN Infusion PAIN 5-7 Dextrose/Lactated Ringer's 1,000 mls @ 83.333 mls/hr 05/14/25 12:00 05/15/25 02:49 D5lr IV 83.33 mls/hr .Q12H FIOR Administration Ketorolac Tromethamine 15 mg 05/13/25 08:22 05/15/25 09:16 Ketorolac 15 Mg/Ml Vial IVP 05/18/25 08:21 15 mg Q6HR PRN Administration Severe Pain (Level 7-10) Lidocaine HCl 5 ml 05/12/25 21:58 05/13/25 20:30 Lidocaine Viscous 2% 15 Ml Udc PO 5 ml Q4H PRN Administration Abdominal Pain Ondansetron HCl 4 mg 05/12/25 17:04 Ondansetron Odt 4 Mg Tablet TL Q6HR PRN Nausea / Vomiting Ondansetron HCl 4 mg 05/12/25 17:04 05/15/25 05:18 Ondansetron 4 Mg/2 Ml Vial IVP 4 mg Q6HR PRN Administration Nausea / Vomiting Pantoprazole Sodium 40 mg 05/13/25 07:00 05/15/25 06:05 Pantoprazole 40 Mg Vial IVP 40 mg QDAC FIOR Administration Prochlorperazine Edisylate 10 mg 05/12/25 17:04 05/15/25 09:16 Prochlorperazine 10 Mg/2 Ml Vial IVP 10 mg Q6HR PRN Administration Nausea / Vomiting Promethazine HCl 25 mg 05/13/25 20:45 05/15/25 05:11 Promethazine 25 Mg Tablet PO 25 mg Q6HR PRN Administration Nausea / Vomiting Sodium Chloride 10 ml 05/12/25 17:04 05/14/25 23:00 Sodium Chloride Flush 0.9% 10 Ml Syringe IVP 10 ml PRN PRN Administration NEEDED PER PROVIDER ORDERS Sodium Chloride 10 ml 05/12/25 17:04 05/15/25 09:03 Sodium Chloride Flush 0.9% 10 Ml Syringe IVP Not Given 0100,0900,1700 [facility] Objective Vital Signs/Intake & Output Reviewed Vital Signs: Yes Vital Signs: Vital Signs x48h Temp Pulse Resp BP Pulse Ox 05/15/25 09:17 98.1 F 77 18 155/99 H 99 05/15/25 06:11 97.7 F 98 20 141/95 H 98 Intake & Output: Intake & Output 05/12/25 05/13/25 05/14/25 05/15/25 23:59 23:59 23:59 23:59 Intake Total 1773 / 1773 3537 / 3537 2746 / 2746 1557 / 1557 Output Total 100 / 100 1300 / 1300 1620 / 1620 200 / 200 Balance 1673 / 1673 2237 / 2237 1126 / 1126 1357 / 1357 Weight (kg) 62 kg Objective Comments/Other: Constitutional normal general appearance, distress noted (mild), abnormal body habitus (thin) and no limitations HENMT normocephalic, head/scalp atraumatic and hearing grossly normal bilaterally Eyes PERRL, EOMs intact bilaterally and conjunctivae normal Neck/C-Spine visual inspection normal, trachea midline and cervical spine nontender Chest inspection of chest normal Respiratory breath sounds equal bilaterally, normal respiratory effort, clear to auscultation bilaterally, no wheezes, no rales and no retractions Cardiovascular normal heart rate noted, regular rhythm noted, no gallop, no rub and no murmur Gastrointestinal Abdomen soft to palpation. No guarding or rigidity noted. Mild tenderness diffusely. Normal bowel sounds. Small surgical noted in the epigastric region, where patient states PEG tube was. Genitourinary no CVA tenderness and bladder normal to palpation Back/Pelvis spine normal to inspection, no thoracic spine tenderness and no lumbar spine tenderness Extremities normal to inspection, normal to palpation, no tenderness and full ROM Neurology no movement abnormality noted and no focal motor deficit noted Psychiatry mental status grossly normal, oriented x3, thought process normal, cooperative and affect normal Skin skin color normal, no rash, no lesions and no wounds Lab Results 05/15/25 05:09 05/15/25 05:09 Other Labs: Lab Results x24hrs 05/15/25 Range/Units 05:09 WBC 5.0 (4.8-10.8) x10^3/uL RBC 4.74 (4.70-6.10) 10^6/uL Hgb 14.1 (14.0-18.0) g/dL Hct 40.4 L (42.0-52.0) % MCV 85.2 (80.0-94.0) fL MCH 29.7 (27.0-31.0) pg MCHC 34.9 (32.0-36.0) g/dL RDW 11.8 L (12.0-15.0) % Plt Count 206 (130-450) 10^3/uL MPV 10.2 (7.4-11.4) fL Sodium 136 (135-145) mmol/L Potassium 3.4 L (3.5-4.5) mmol/L Chloride 102 (101-111) mmol/L Carbon Dioxide 28 (21-32) mmol/L Anion Gap 6.0 (6-13) BUN 9 (6-20) mg/dL Creatinine 0.8 (0.6-1.3) mg/dL Estimated GFR (MDRD) 141 (>89) Glucose 127 H (74-104) mg/dL Calcium 8.9 (8.5-10.3) mg/dL Magnesium 2.1 (1.7-2.3) mg/dL Assessment/Plan Problem List (1) Intractable cyclical vomiting with nausea: Impression: Patient continues with intractable cyclical vomiting with nausea, and abdominal pain. CT abdomen/pelvis negative for any acute process. Concern for continued acute dehydration requiring IVF, and inability to tolerate any p.o. intake. Positive for cannabinoid use. Patient states that he believes he has not used cannabinoids in over a month. Likely this is cannabinoid hyperemesis syndrome. Received multiple doses of antiemetics without relief in ED. Capsaicin cream, IV fluid, pain control, nausea control with Zofran, Compazine, as needed (whichever works better). Patient request soft diet. May require PPN if continued emesis in next 24-48 hours. Consideration can be made for acute intermittent porphyria. I have ordered urinary porphobilinogen (PBG) ([facility] ID [id number]) and aminolevulinic acid (ALA) ([facility] ID [id number]). These are send out tests, so may not return by time patient is discharged, but he can follow-up with them outpatient. (2) Hypokalemia: Impression: Continue IV replacement, trend as we replace. Likely due to GI losses as above. (3) GERD with esophagitis: Impression: EGD was performed 03/23 which showed severe ulcerative esophagitis, and he was discharged on Protonix and Carafate. Continue IV Protonix while here. Qualifiers: Esophagitis bleeding: without hemorrhage Qualified Code(s): K21.00 - Gastro-esophageal reflux disease with esophagitis, without bleeding (4) History of intussusception of intestine: Impression: Surgical history includes PEG tube insertion. He states he did not have a colectomy for the intussusception and it resolved on its own. This was in 2019.
[2025-05-15] MEDS: POTASSIUM CHLORIDE 20 MEQ TABLET PO ONE (11:42)
[2025-05-16 05:35] LABS: HCT - HEMATOCRIT 40.7 % (42.0-52.0); HGB - HEMOGLOBIN 14.7 g/dL (14.0-18.0); MEAN PLATELET VOLUME 10.0 fL (7.4-11.4); PLT - PLATELET COUNT 212.0 10^3/uL (130-450); RED CELL DISTRIBUTION WIDTH 11.9 % (12.0-15.0)
[2025-05-16 05:56] LABS: ALT ALANINE AMINOTRANSFERASE 14.0 IU/L (10-60); AST ASPARTATE AMINOTRANSFERASE 13.0 IU/L (10-42); BUN - BLOOD UREA NITROGEN 6.0 mg/dL (6-20); CARBON DIOXIDE - CO2 30.0 mmol/L (21-32); CREATININE 0.8 mg/dL (0.6-1.3); GFR - MDRD 141.0 (>89)
--- NOTE | 2025-05-16 09:04 | PROVIDER PROGRESS NOTE ---
Subjective Subjective Subjective: Today, patient continues to have episodes of nausea and vomiting. He states he had about 3 overnight. He feels better for a little bit, and then eats, and then has episodes of emesis a few hours after. His abdominal pain has decreased, but does worsen with active retching. We spoke about PPN. He has been here for about 5 days, and was throwing up and not eating anything for 3 days prior to that. He knows his BMI is already low to begin with. He is agreeable to supplemental TPN, and we will wait it off as his dietary intake increases. Current Medications Current Medications Current Medications: Current Medications Generic Name Dose Route Start Last Admin Trade Name Freq PRN Reason Stop Dose Admin Acetaminophen 650 mg 05/12/25 17:04 Acetaminophen 325 Mg Tablet PO Q4HR PRN Pain 1 to 4, or Fever Al Hydroxide/Mg Hydroxide 30 ml 05/12/25 21:10 05/13/25 20:33 Mag Hydrox/Al Hydrox/Simeth 30 Ml Udc PO 30 ml Q4HR PRN Administration INDIGESTION Capsaicin 1 applic 05/12/25 17:04 05/16/25 09:03 Capsaicin 0.025% Cream 60 Gm Tube TOP Not Given QID FIOR Enoxaparin Sodium 40 mg 05/13/25 09:00 05/16/25 09:03 Enoxaparin 40 Mg/0.4 Ml Syringe SUBQ 40 mg DAILY FIOR Administration Acetaminophen 1,000 mg in 100 mls @ 400 mls/hr 05/13/25 00:01 05/15/25 00:07 Acetaminophen IV Infused Q6HR PRN Infusion PAIN 5-7 Potassium Chloride 20 meq/ 1,010 mls @ 83.333 mls/hr 05/16/25 08:55 Dextrose/Lactated Ringer's IV .Q12H8M FIOR Ketorolac Tromethamine 15 mg 05/13/25 08:22 05/15/25 09:16 Ketorolac 15 Mg/Ml Vial IVP 05/18/25 08:21 15 mg Q6HR PRN Administration Severe Pain (Level 7-10) Lidocaine HCl 5 ml 05/12/25 21:58 05/13/25 20:30 Lidocaine Viscous 2% 15 Ml Udc PO 5 ml Q4H PRN Administration Abdominal Pain Metoclopramide HCl 5 mg 05/16/25 09:00 Metoclopramide 10 Mg/2 Ml Vial IVP ONCE FIOR Ondansetron HCl 4 mg 05/12/25 17:04 Ondansetron Odt 4 Mg Tablet TL Q6HR PRN Nausea / Vomiting Ondansetron HCl 4 mg 05/12/25 17:04 05/15/25 14:33 Ondansetron 4 Mg/2 Ml Vial IVP 4 mg Q6HR PRN Administration Nausea / Vomiting Pantoprazole Sodium 40 mg 05/13/25 07:00 05/16/25 06:45 Pantoprazole 40 Mg Vial IVP 40 mg QDAC FIOR Administration Prochlorperazine Edisylate 10 mg 05/12/25 17:04 05/16/25 02:56 Prochlorperazine 10 Mg/2 Ml Vial IVP 10 mg Q6HR PRN Administration Nausea / Vomiting Sodium Chloride 10 ml 05/12/25 17:04 05/14/25 23:00 Sodium Chloride Flush 0.9% 10 Ml Syringe IVP 10 ml PRN PRN Administration NEEDED PER PROVIDER ORDERS Sodium Chloride 10 ml 05/12/25 17:04 05/16/25 09:03 Sodium Chloride Flush 0.9% 10 Ml Syringe IVP Not Given 0100,0900,1700 FIOR Sucralfate 1 gm 05/16/25 11:00 Sucralfate 1 Gm/10 Ml Udc PO 0700,1100,1600,2200 FIOR Objective Vital Signs/Intake & Output Reviewed Vital Signs: Yes Vital Signs: Vital Signs x48h Temp Pulse Resp BP Pulse Ox 05/15/25 09:17 98.1 F 77 18 155/99 H 99 05/15/25 06:11 97.7 F 98 20 141/95 H 98 Intake & Output: Intake & Output 05/13/25 05/14/25 05/15/25 05/16/25 23:59 23:59 23:59 23:59 Intake Total 3537 / 3537 2746 / 2746 3761 / 3761 793 / 793 Output Total 1300 / 1300 1620 / 1620 850 / 850 Balance 2237 / 2237 1126 / 1126 2911 / 2911 793 / 793 Objective Comments/Other: Constitutional normal general appearance, distress noted (mild), abnormal body habitus (thin) and no limitations HENMT normocephalic, head/scalp atraumatic and hearing grossly normal bilaterally Eyes PERRL, EOMs intact bilaterally and conjunctivae normal Neck/C-Spine visual inspection normal, trachea midline and cervical spine nontender Chest inspection of chest normal Respiratory breath sounds equal bilaterally, normal respiratory effort, clear to auscultation bilaterally, no wheezes, no rales and no retractions Cardiovascular normal heart rate noted, regular rhythm noted, no gallop, no rub and no murmur Gastrointestinal Abdomen soft to palpation. No guarding or rigidity noted. Mild tenderness diffusely. Normal bowel sounds. Small surgical noted in the epigastric region, where patient states PEG tube was. Genitourinary no CVA tenderness and bladder normal to palpation Back/Pelvis spine normal to inspection, no thoracic spine tenderness and no lumbar spine tenderness Extremities normal to inspection, normal to palpation, no tenderness and full ROM Neurology no movement abnormality noted and no focal motor deficit noted Psychiatry mental status grossly normal, oriented x3, thought process normal, cooperative and affect normal Skin skin color normal, no rash, no lesions and no wounds Lab Results 05/16/25 05:07 05/16/25 05:07 Other Labs: Lab Results x24hrs 05/16/25 Range/Units 05:07 WBC 6.0 (4.8-10.8) x10^3/uL RBC 4.79 (4.70-6.10) 10^6/uL Hgb 14.7 (14.0-18.0) g/dL Hct 40.7 L (42.0-52.0) % MCV 85.0 (80.0-94.0) fL MCH 30.7 (27.0-31.0) pg MCHC 36.1 H (32.0-36.0) g/dL RDW 11.9 L (12.0-15.0) % Plt Count 212 (130-450) 10^3/uL MPV 10.0 (7.4-11.4) fL Sodium 138 (135-145) mmol/L Potassium 3.0 L (3.5-4.5) mmol/L Chloride 103 (101-111) mmol/L Carbon Dioxide 30 (21-32) mmol/L Anion Gap 5.0 L (6-13) BUN 6 (6-20) mg/dL Creatinine 0.8 (0.6-1.3) mg/dL Estimated GFR (MDRD) 141 (>89) Glucose 118 H (74-104) mg/dL Calcium 9.1 (8.5-10.3) mg/dL Magnesium 2.0 (1.7-2.3) mg/dL Total Bilirubin 1.0 (0.2-1.0) mg/dL AST 13 (10-42) IU/L ALT 14 (10-60) IU/L Alkaline Phosphatase 42 (42-121) IU/L Total Protein 6.2 L (6.4-8.9) g/dL Albumin 4.0 (3.2-5.5) g/dL Globulin 2.2 (2.1-4.2) g/dL Albumin/Globulin Ratio 1.8 (1.0-2.2) Assessment/Plan Problem List (1) Intractable cyclical vomiting with nausea: Impression: Patient continues with intractable cyclical vomiting with nausea, and abdominal pain. Ongoing now for about 8 days with little to no P.O. intake. CT abdomen/pelvis negative for any acute process. Positive for cannabinoid use. Patient states that he believes he has not used cannabinoids in over a month. Likely this is cannabinoid hyperemesis syndrome. Typical course is usually 48 hours, but some cases can extend to 7 to 10 days. Likely for him this is the latter. Have ordered one-time dose of Reglan to see if it helps, but with history of intussusception, will try to limit usage. Capsaicin cream, IV fluid, pain control, nausea control with Zofran, Compazine, as needed. Patient request soft diet. PPN to be initiated 05/16. Can consider repeat CT abdomen, but one completed on admission showed no acute abnormalities. Abdominal exam remains benign. Consideration made for acute intermittent porphyria. I have ordered urinary porphobilinogen (PBG) ([facility] ID [id number]) and aminolevulinic acid (ALA) ([facility] ID [id number]). These are send out tests, so may not return by time patient is discharged, but he can follow-up with them outpatient. (2) Hypokalemia: Impression: Continue IV replacement, trend as we replace. Likely due to GI losses as above. (3) GERD with esophagitis: Impression: EGD was performed 03/23 which showed severe ulcerative esophagitis, and he was discharged on Protonix and Carafate. Continue IV Protonix while here. Carafate initiated as well. Qualifiers: Esophagitis bleeding: without hemorrhage Qualified Code(s): K21.00 - Gastro-esophageal reflux disease with esophagitis, without bleeding (4) History of intussusception of intestine: Impression: Surgical history includes PEG tube insertion. He states he did not have a colectomy for the intussusception and it resolved on its own. This was in 2019. There are some outside records that support this, that were reviewed.
[2025-05-16] MEDS: METOCLOPRAMIDE 10 MG/2 ML VIAL IVP ONE (09:25)
[2025-05-16] MEDS: POTASSIUM CHLORIDE INJ 20 MEQ in DEXTROSE 5%-LACTATED RINGERS 1,000 ML IV SCH (09:35)
[2025-05-16] MEDS: ONDANSETRON ODT 4 MG TABLET TL PRN (13:04)
[2025-05-16] MEDS: SUCRALFATE 1 GM/10 ML UDC PO SCH (14:07)
[2025-05-16] MEDS: POTASSIUM CHLOR 10 MEQ/100 ML 10 MEQ/100 ML BAG IV SCH (18:32)
[2025-05-16] MEDS: PPN (CLINIMIX E 4.25/5) 2,000 ML with MULTIVITAMIN 10 ML, TRACE ELEMENTS 1 ML IV SCH (19:06)
[2025-05-16] MEDS: FAT EMULSION 20% 250 ML IV SCH (19:10)
[2025-05-17 05:45] LABS: PHOSPHORUS 4.3 mg/dL (2.5-5.0)
[2025-05-17 06:15] LABS: BUN - BLOOD UREA NITROGEN 10.0 mg/dL (6-20); CARBON DIOXIDE - CO2 28.0 mmol/L (21-32); CREATININE 0.7 mg/dL (0.6-1.3); GFR - MDRD 164.0 (>89)
--- NOTE | 2025-05-17 08:07 | PROVIDER PROGRESS NOTE ---
Subjective Prog Note Date Prog Note Date: 05/17/25 Prog Note Time: 08:06 Subjective Subjective: Was started on PPN last night. Has been getting antiemetics, Zofran x 2, Compazine x 1 in the last 12 hours. Potassium was repleted IV last night. Labs mostly normal this morning. Has not been getting capsaicin cream. Got 1 dose of Reglan early yesterday. Dose of Toradol this morning, presumably for abdominal pain. He reports that it is difficult for him to take any oral intake. He is apprehensive about eating because he is concerned he will get nauseous. Encouraged him to take antiemetics in anticipation of eating. He also reports that he has not had a bowel movement in at least a week. He declines any bowel medications today. Current Medications Current Medications Current Medications: Current Medications Generic Name Dose Route Start Last Admin Trade Name Freq PRN Reason Stop Dose Admin Acetaminophen 650 mg 05/12/25 17:04 Acetaminophen 325 Mg Tablet PO Q4HR PRN Pain 1 to 4, or Fever Al Hydroxide/Mg Hydroxide 30 ml 05/12/25 21:10 05/13/25 20:33 Mag Hydrox/Al Hydrox/Simeth 30 Ml Udc PO 30 ml Q4HR PRN Administration INDIGESTION Capsaicin 1 applic 05/12/25 17:04 05/16/25 20:17 Capsaicin 0.025% Cream 60 Gm Tube TOP Not Given QID FIOR Enoxaparin Sodium 40 mg 05/13/25 09:00 05/16/25 09:03 Enoxaparin 40 Mg/0.4 Ml Syringe SUBQ 40 mg DAILY FIOR Administration Acetaminophen 1,000 mg in 100 mls @ 400 mls/hr 05/13/25 00:01 05/15/25 00:07 Acetaminophen IV Infused Q6HR PRN Infusion PAIN 5-7 Multivitamins 10 ml/ Zinc/ 2,011 mls @ 83 mls/hr 05/16/25 19:00 05/16/25 22:47 Copper/Manganese/Selenium 1 ml IV 83 mls/hr / Amino Acids/Electrolytes/ 1900 FIOR Infusion Dextrose Protocol Fat Emulsion Intravenous 250 mls @ 21 mls/hr 05/16/25 19:00 05/17/25 07:30 Intralipid 20% IV Infused 1900 FIOR Infusion Ketorolac Tromethamine 15 mg 05/13/25 08:22 05/17/25 05:15 Ketorolac 15 Mg/Ml Vial IVP 05/18/25 08:21 15 mg Q6HR PRN Administration Severe Pain (Level 7-10) Lidocaine HCl 5 ml 05/12/25 21:58 05/13/25 20:30 Lidocaine Viscous 2% 15 Ml Udc PO 5 ml Q4H PRN Administration Abdominal Pain Ondansetron HCl 4 mg 05/12/25 17:04 05/16/25 13:04 Ondansetron Odt 4 Mg Tablet TL 4 mg Q6HR PRN Administration Nausea / Vomiting Ondansetron HCl 4 mg 05/12/25 17:04 05/17/25 05:16 Ondansetron 4 Mg/2 Ml Vial IVP 4 mg Q6HR PRN Administration Nausea / Vomiting Pantoprazole Sodium 40 mg 05/13/25 07:00 05/17/25 05:16 Pantoprazole 40 Mg Vial IVP 40 mg QDAC FIOR Administration Prochlorperazine Edisylate 10 mg 05/12/25 17:04 05/16/25 17:40 Prochlorperazine 10 Mg/2 Ml Vial IVP 10 mg Q6HR PRN Administration Nausea / Vomiting Sodium Chloride 10 ml 05/12/25 17:04 05/17/25 05:16 Sodium Chloride Flush 0.9% 10 Ml Syringe IVP 10 ml PRN PRN Administration NEEDED PER PROVIDER ORDERS Sodium Chloride 10 ml 05/12/25 17:04 05/17/25 02:11 Sodium Chloride Flush 0.9% 10 Ml Syringe IVP 10 ml 0100,0900,1700 FIOR Administration Sucralfate 1 gm 05/16/25 11:00 05/17/25 05:15 Sucralfate 1 Gm/10 Ml Udc PO 1 gm 0700,1100,1600,2200 FIOR Administration Objective Vital Signs/Intake & Output Reviewed Vital Signs: Yes Vital Signs: Vital Signs x48h Temp Pulse Resp BP Pulse Ox 05/17/25 07:52 36.4 C L 87 20 134/85 H 98 Intake & Output: Intake & Output 05/14/25 05/15/25 05/16/25 05/17/25 23:59 23:59 23:59 23:59 Intake Total 2746 / 2746 3761 / 3761 2788 / 2788 274 / 274 Output Total 1620 / 1620 850 / 850 450 / 450 400 / 400 Balance 1126 / 1126 2911 / 2911 2338 / 2338 -126 / -126 Weight (kg) 64.5 kg Objective Comments/Other: GEN: No acute distress. Well-developed. HEENT: NC/AT, normal appearance of external ears and nose. Hearing baseline. Cardiac: Regular rate and rhythm, no murmurs. Pulm: Lungs CTA bilaterally, no cough, no wheezes. Normal effort on room air Abdomen: Soft, nontender, nondistended. Nontender to palpation throughout. No rebound tenderness or guarding. Extremities: Moves all 4 extremities equally. Normal tone. Neuro: Face symmetric, CN II through XII intact grossly. No evident focal deficits. Psych: Mood euthymic. Somewhat flattened affect. Questionable insight Lab Results 05/16/25 05:07 05/17/25 04:54 Other Labs: Lab Results x24hrs 05/17/25 05/16/25 Range/Units 04:54 17:36 Sodium 135 (135-145) mmol/L Potassium 3.9 3.2 L (3.5-4.5) mmol/L Chloride 102 (101-111) mmol/L Carbon Dioxide 28 (21-32) mmol/L Anion Gap 5.0 L (6-13) BUN 10 (6-20) mg/dL Creatinine 0.7 (0.6-1.3) mg/dL Estimated GFR (MDRD) 164 (>89) Glucose 109 H (74-104) mg/dL Calcium 9.3 (8.5-10.3) mg/dL Phosphorus 4.3 (2.5-5.0) mg/dL Magnesium 2.3 (1.7-2.3) mg/dL Prealbumin 30 (17-34) mg/dL Assessment/Plan Problem List (1) Intractable cyclical vomiting with nausea: Impression: Questionably improved. Patient is able to take in some slight oral intake. He still very nervous about eating and drinking. Patient reports that he has had little to no oral intake for at least a week, up to 10 days. He has no acute process in his abdomen. He has a history of recurrent episodes of cyclic vomiting. He reports little to no use of cannabinoids, but has historically said similar things and continues to have cannabinoids present on urine toxicology. Overall presentation has historically and continues to be most consistent with cannabinoid hyperemesis syndrome. His pattern of nausea and emesis is unusual in that he typically eats and then a couple of hours later feels nauseous. This is more suggestive of gastroparesis. Less likely gastroenteritis. Less likely gastric outlet obstruction. He does not have any acute signs of intestinal obstruction. He has a history of possible volvulus versus intussusception. I cannot find clear chart evidence of this. He states he had a gastric tube for a short period, but had no colectomy or gastrectomy. Will cautiously trial on prokinetic agents. He tolerated a dose on 05/16. History of GERD with esophagitis as below. - Continue to encourage multimodal antiemetics. - Zofran, Compazine, Reglan all available as needed - Encourage oral intake - Consider adding low-dose Ativan versus steroids if continues to not eat - Follow-up peripheral labs ordered by prior provider - Will discontinue PPN for now, finish out today's bag - Monitor CMP, mag, Phos in a.m. - Will need outpatient GI follow-up - Encouraged bowel meds, Consider suppository versus enema (2) Hypokalemia: Impression: Potassium normal as of this morning. Has been replaced IV throughout this hospitalization. Likely in setting of GI losses as well as poor nutrition. - Monitor electrolytes as above (3) GERD with esophagitis: Impression: Known history. Asymptomatic at this time. Had EGD performed 03/23 showing severe ulcerative esophagitis. Blood counts remained stable as of admission. He has been discharged on Protonix and Carafate. - Continue PPI and Carafate - Transition PPI to oral tomorrow Qualifiers: Esophagitis bleeding: without hemorrhage Qualified Code(s): K21.00 - Gastro-esophageal reflux disease with esophagitis, without bleeding (4) History of intussusception of intestine: Impression: Surgical history includes PEG tube insertion. He states he did not have a colectomy for the intussusception and it resolved on its own. This was in 2019. CT abdomen pelvis on admission was normal without any acute process.
[2025-05-17] MEDS: METOCLOPRAMIDE 10 MG TABLET PO PRN (11:50)
[2025-05-18 05:57] LABS: ALT ALANINE AMINOTRANSFERASE 15.0 IU/L (10-60); AST ASPARTATE AMINOTRANSFERASE 12.0 IU/L (10-42); BUN - BLOOD UREA NITROGEN 15.0 mg/dL (6-20); CARBON DIOXIDE - CO2 27.0 mmol/L (21-32); CREATININE 0.9 mg/dL (0.6-1.3); GFR - MDRD 123.0 (>89); PHOSPHORUS 4.5 mg/dL (2.5-5.0)
--- NOTE | 2025-05-18 07:33 | PROVIDER PROGRESS NOTE ---
Subjective Prog Note Date Prog Note Date: 05/18/25 Prog Note Time: 07:30 Subjective Subjective: Labs are normal this morning. Has been still receiving IV Toradol, IV Zofran. Transition meds to oral. Vital signs remained stable. Plan continue to trend labs, maintain low fiber diet. Encourage small snacks between meals. Crackers, toast. Current Medications Current Medications Current Medications: Current Medications Generic Name Dose Route Start Last Admin Trade Name Freq PRN Reason Stop Dose Admin Acetaminophen 650 mg 05/12/25 17:04 Acetaminophen 325 Mg Tablet PO Q4HR PRN Pain 1 to 4, or Fever Al Hydroxide/Mg Hydroxide 30 ml 05/12/25 21:10 05/13/25 20:33 Mag Hydrox/Al Hydrox/Simeth 30 Ml Udc PO 30 ml Q4HR PRN Administration INDIGESTION Capsaicin 1 applic 05/12/25 17:04 05/17/25 19:38 Capsaicin 0.025% Cream 60 Gm Tube TOP Not Given QID [facility] Enoxaparin Sodium 40 mg 05/13/25 09:00 05/17/25 10:52 Enoxaparin 40 Mg/0.4 Ml Syringe SUBQ Not Given DAILY [facility] Ketorolac Tromethamine 15 mg 05/13/25 08:22 05/18/25 05:28 Ketorolac 15 Mg/Ml Vial IVP 05/18/25 08:21 15 mg Q6HR PRN Administration Severe Pain (Level 7-10) Lidocaine HCl 5 ml 05/12/25 21:58 05/13/25 20:30 Lidocaine Viscous 2% 15 Ml Udc PO 5 ml Q4H PRN Administration Abdominal Pain Metoclopramide HCl 10 mg 05/17/25 08:08 05/17/25 11:50 Metoclopramide 10 Mg Tablet PO 10 mg Q6H PRN Administration Nausea / Vomiting Ondansetron HCl 4 mg 05/12/25 17:04 05/16/25 13:04 Ondansetron Odt 4 Mg Tablet TL 4 mg Q6HR PRN Administration Nausea / Vomiting Ondansetron HCl 4 mg 05/12/25 17:04 05/18/25 05:20 Ondansetron 4 Mg/2 Ml Vial IVP 4 mg Q6HR PRN Administration Nausea / Vomiting Pantoprazole Sodium 40 mg 05/13/25 07:00 05/18/25 06:08 Pantoprazole 40 Mg Vial IVP 40 mg QDAC FIOR Administration Prochlorperazine Maleate 5 mg 05/18/25 07:29 Prochlorperazine 5 Mg Tablet PO Q6HR PRN Nausea / Vomiting Sodium Chloride 10 ml 05/12/25 17:04 05/18/25 05:20 Sodium Chloride Flush 0.9% 10 Ml Syringe IVP 10 ml PRN PRN Administration NEEDED PER PROVIDER ORDERS Sodium Chloride 10 ml 05/12/25 17:04 05/17/25 23:37 Sodium Chloride Flush 0.9% 10 Ml Syringe IVP 10 ml 0100,0900,1700 FIOR Administration Sucralfate 1 gm 05/16/25 11:00 05/18/25 06:07 Sucralfate 1 Gm/10 Ml Udc PO 1 gm 0700,1100,1600,2200 FIOR Administration Objective Vital Signs/Intake & Output Intake & Output: Intake & Output 05/15/25 05/16/25 05/17/25 05/18/25 23:59 23:59 23:59 23:59 Intake Total 3761 / 3761 2788 / 2788 2179 / 2179 Output Total 850 / 850 450 / 450 500 / 500 200 / 200 Balance 2911 / 2911 2338 / 2338 1679 / 1679 -200 / -200 Weight (kg) 64.5 kg Lab Results 05/16/25 05:07 05/18/25 05:16 Other Labs: Lab Results x24hrs 05/18/25 Range/Units 05:16 Sodium 136 (135-145) mmol/L Potassium 3.9 (3.5-4.5) mmol/L Chloride 100 L (101-111) mmol/L Carbon Dioxide 27 (21-32) mmol/L Anion Gap 9.0 (6-13) BUN 15 (6-20) mg/dL Creatinine 0.9 (0.6-1.3) mg/dL Estimated GFR (MDRD) 123 (>89) Glucose 100 (74-104) mg/dL Calcium 9.3 (8.5-10.3) mg/dL Phosphorus 4.5 (2.5-5.0) mg/dL Magnesium 2.2 (1.7-2.3) mg/dL Total Bilirubin 1.2 H (0.2-1.0) mg/dL AST 12 (10-42) IU/L ALT 15 (10-60) IU/L Alkaline Phosphatase 49 (42-121) IU/L Total Protein 6.7 (6.4-8.9) g/dL Albumin 4.4 (3.2-5.5) g/dL Globulin 2.3 (2.1-4.2) g/dL Albumin/Globulin Ratio 1.9 (1.0-2.2) Prealbumin 32 (17-34) mg/dL Assessment/Plan Problem List (1) Intractable cyclical vomiting with nausea: (2) Hypokalemia: (3) GERD with esophagitis: Qualifiers: Esophagitis bleeding: without hemorrhage Qualified Code(s): K21.00 - Gastro-esophageal reflux disease with esophagitis, without bleeding (4) History of intussusception of intestine:
[2025-05-18] MEDS: PROCHLORPERAZINE 5 MG TABLET PO PRN (12:03)
--- NOTE | 2025-05-18 14:21 | Discharge Summary ---
"Discharge Summary Admit Date: 05/12/25 Discharge Date: 05/18/25 Discharging Provider: Jose Lang Primary Care Provider: Jose Khan Code Status: Attempt Resuscitation Discharge Facility Name: Home DIAGNOSES Discharge Diagnoses with Status of Each Condition: ## Intractable cyclical vomiting with nausea By day of discharge, the patient was able to eat nearly a full meal at lunch. He had oral Compazine prior to his meal. He feels like he is doing better and able to discharge safely. On admission, patient reports that he has had little to no oral intake for at least a week, up to 10 days. He has no acute process in his abdomen. He has a history of recurrent episodes of cyclic vomiting. He reports little to no use of cannabinoids, but has historically said similar things and continues to have cannabinoids present on urine toxicology. Overall presentation has historically and continues to be most consistent with cannabinoid hyperemesis syndrome. His pattern of nausea and emesis is unusual in that he typically eats and then a couple of hours later feels nauseous. This is more suggestive of gastroparesis. Less likely gastroenteritis. Less likely gastric outlet obstruction. He does not have any acute signs of intestinal obstruction. He has a history of possible volvulus versus intussusception. I cannot find clear chart evidence of this. He states he had a gastric tube for a short period, But no history of intra-abdominal surgery. History of GERD with esophagitis as below. - Discharging with oral Compazine and Zofran, both have been effective for him. - Advised him to wean off of antiemetics as able - Needs follow-up with primary care - Needs follow-up with GI - Labs for AIP r/o were ordered by prior provider but not yet resulted - Abstain from canabis ## Hypokalemia, resolved Potassium was normal on the last 2 days of his admission. Low throughout the early parts of admission repleted IV. Likely in the setting of GI losses and poor oral intake. ## GERD with esophagitis Patient is not having symptoms of GERD. He has a known history and is asymptomatic on treatment. He had an EGD performed on 03/23 at outside hospital which revealed ulcerative esophagitis, severe. Blood counts have remained stable during his reports of this admission. He had been started on Protonix and Carafate, but had not continued them. I do not see any record of them doing H. pylori testing which may be a unifying diagnosis. - Represcribe PPI and Carafate - Needs GI follow-up ## History of intussusception of intestine Surgical history includes PEG tube insertion. He states he did not have a colectomy for the intussusception and it resolved on its own. This was in 2019. He is unclear where this happened. CT abdomen pelvis on admission was normal without any acute process or obstruction. This is intermittently listed as a volvulus in his records. HPI History of Present Illness: Patient is a 25-year-old male with a history of previous intussusception in 2019, former PEG tube, now removed, former admissions for cyclical vomiting syndrome, with concern for cannabinoid hyperemesis syndrome who presents for 4 to 5 days of worsening nausea and vomiting. He does not recall what triggered it. He thinks his last marijuana use was over a month ago, but with his drug screen being positive, he thinks it may have been sooner. He describes emesis is clear, but worries that there may have been some acid with the most recent 1. He denies any blood in his emesis. He continues to have nausea, although he states that Compazine did help. He has not been able to tolerate any food for the last few days. He is describes his abdominal pain as diffuse, cramping in nature. He associates it with retching and vomiting. [facility] discharge summary reviewed from 03/25/2025. He was admitted for a very similar presentation. GI was consulted and an EGD was performed 03/23 which showed severe ulcerative esophagitis, and he was discharged on Protonix and Carafate, which he states he completed his course of. He was advised close follow-up with his primary care provider. Past medical history includes intussusception, former PEG tube, GERD, marijuana use. Patient is currently taking no medications. He has no known drug allergies. Surgical history includes PEG tube insertion. He states he did not have a colectomy for the intussusception and it resolved on its own. This was in 2019. He denies any alcohol use, or tobacco use. He states he only smokes a very little bit of marijuana when he does, and thinks it has been weeks since his last time. He works as a contractor. He lives with his parents. CONSULTS | PROCEDURES Consultations: None Procedures: CT abdomen pelvis 04/11 HOSPITAL COURSE Hospital Course: Patient was admitted with intractable nausea and vomiting. He was tried on multiple antiemetics, specifically avoiding in the early parts of his hospital course prokinetic agents due to his history of intestinal obstruction. He had a CT abdomen pelvis done on 05/10, and repeated on day of admission 05/12. These did not show any obstructive process. Eventually was treated with combinations of Zofran, Reglan, Compazine. Of these he found Compazine to be most effective. Oral Compazine was tolerated well the day of discharge. He was able to eat most of his lunch this day. This was the first time he has eaten any significant portion of a meal since his admission. He feels well without any residual nausea. Given his prolonged period of not eating, he was briefly treated with PPN overnight on hospital day 4-5. This was discontinued given his otherwise normal labs, normal BMI, evidence that he did gained weight since his hospitalization at [facility] in March. His labs remain normal. He was discharged with antiemetics and refills of his prior acid controlling medicines. ALLERGIES Allergies Allergy/AdvReac Type Severity Reaction Status Date / Time No Known Drug Allergies Allergy Verified 05/12/25 12:58 MEDICATIONS Ambulatory Orders Medication Instructions Recorded Confirmed ondansetron 4 mg disintegrating 4 mg translingual Q6HR PRN Nausea 05/18/25 tablet / Vomiting #30 tabs pantoprazole 40 mg tablet,delayed 40 mg PO DAILY #30 t abs 05/18/25 release prochlorperazine maleate 5 mg 5 mg PO Q6HR PRN Nausea / Vomiting 05/18/25 tablet #90 tabs sucralfate 100 mg/mL oral 1 g (10 mL) PO 0700,1100,160 0,2200 05/18/25 suspension #1,200 mL PHYSICAL EXAM AT DISCHARGE Vital Signs: Vital Signs x48h Temp Pulse Resp BP Pulse Ox 05/18/25 15:19 36.5 C 105 H 18 137/89 H 99 GEN: No acute distress. Well-developed. HEENT: NC/AT, normal appearance of external ears and nose. Hearing baseline. Cardiac: Regular rate and rhythm, no murmurs. Pulm: Lungs CTA bilaterally, no cough, no wheezes. Normal effort on room air Abdomen: Soft, nontender, nondistended. Nontender to palpation throughout. No rebound tenderness or guarding. Extremities: Moves all 4 extremities equally. Normal tone. Neuro: Face symmetric, CN II through XII intact grossly. No evident focal deficits. Psych: Mood euthymic. Somewhat flattened affect. Questionable insight LABS 05/16/25 05:07 05/18/25 05:16 DIAGNOSTIC IMAGING Diagnostic Imaging Results: Final report reviewed Diagnostic Imaging Results Comments: CT abdomen pelvis from 04/11 with no acute intra-abdominal process. Normal- appearing appendix. Normal pancreas. FOLLOW UP Follow Up: Follow-up with PCP in 1 to 2 weeks Follow-up with GI within the next month TIME SPENT Time Spent in Discharge (Minutes): 38 Discharge Plan Discharge Patient Disposition: Home, Self Care Condition: Good Medically Cleared Date:: 05/18/25 Prescriptions: New prochlorperazine maleate 5 mg Tablet 5 mg PO Q6HR PRN (Reason: Nausea / Vomiting) Qty: 90 0RF sucralfate 100 mg/mL Suspension 1 g PO 0700,1100,1600,2200 Qty: 1200 0RF ondansetron 4 mg Tablet,Disintegrating 4 mg translingual Q6HR PRN (Reason: Nausea / Vomiting) Qty: 30 0RF pantoprazole 40 mg tablet,delayed release (DR/EC) 40 mg PO DAILY Qty: 30 0RF Discontinued ondansetron 4 mg tablet,disintegrating 4 mg PO Q8H PRN (Reason: nausea and vomiting) Qty: 15 0RF Activity Restrictions: No Restrictions Diet: Regular Health Concerns: You have been diagnosed withcyclic vomiting syndrome. This condition causes repeated episodes of severe nausea, vomiting, and belly pain. Symptoms often get better with hot showers or baths. As you know this may be related to cannabis use, and abstinence may help prevent recurrence of symptoms. You also have been found in the past to have esophagitis (inflammation in your esophagus). You should keep taking antacid medicines (carafate and pantoprazole) until you follow-up with a lidder (GI) doctor. What to do at home: * Symptom relief:If you have another episode, taking a hot shower or bath may help you feel better for a short time. * Medications:You may be prescribed medicines such as topical capsaicin cream (applied to your upper belly), haloperidol, or other anti-nausea medicines. These can help with symptoms. For the next few weeks you may need to take them before each meal, but slowly try to taper them off. * Avoid opioids.These medicines can make nausea and vomiting worse and are not recommended * Stay hydrated.Drink small sips of clear fluids. If you cannot keep fluids down for more than 12 hours, seek medical attention. * Mental health and support:If you have trouble stopping cannabis, or if you feel anxious or depressed, talk to your healthcare provider. Counseling and support can help you quit and manage withdrawal symptoms. When to seek help: * If you cannot keep any fluids down for more than 12 hours. * If you feel very weak, dizzy, or faint. * If you have severe belly pain, blood in your vomit, or black stools. * If your symptoms are different from your usual episodes or are getting worse. Important reminders: * Symptoms will return if you use cannabis again.Even after you feel better, using cannabis can cause CHS to come back. * Recovery takes time.Most people start to feel better within a few days to weeks after stopping cannabis, but full recovery may take longer. * Keep all follow-up appointmentswith your healthcare team. It has been a pleasure taking care of you. I hope you continue to feel better. Print Language: Maltese Patient Instructions: Cyclic Vomiting, ED Vomiting (Adult) Stand Alone Forms: PCP List Follow-up Care: Jose Khan, JOSSY, POWER SYSTEM OPERATOR, INTERMEDIATE CARD TENDER [Primary Care Provider, Family Practice] Vitals documented within 30 minutes of discharge?: Yes"
[2025-05-18 15:21] VITALS: BP 137/89; TEMP 97.7; O2SAT 99
== END 2025-05-18 15:21 | disposition home or self-care (01) | DRG 392 ==
LOC: MS2 12:42 → ED 12:42 → MS2 17:04 → SUATTDRO 05-14 18:16
PROVIDERS: ADMIT Internal Medicine; ATTEND Student in an Organized Health Care Education/Training Program
DX: Z87.19 Personal history of other diseases of the digestive system; R11.16 Cannabis hyperemesis syndrome; K21.00 Gastro-esophageal reflux disease with esophagitis, without bleeding; E87.6 Hypokalemia; E86.0 Dehydration